=== PATIENT | female | born 1985 | race Caucasian/White ===

== ENCOUNTER 2018-10-09 19:18 | Emergency (ER) | payer MEDICAID, SELFPAY ==
[2018-10-09 19:22] VITALS: BP 183/112; PULSE 65; RESP 24; TEMP 37.1; O2SAT 96
--- NOTE | 2018-10-09 19:52 | ED.GENADUL_ITS ---
Discharge Plan Disposition Patient Disposition: HOME Condition: Good Discharge Details Chief Complaint: DentalOral Clinical Impression: Infected dental carries Primary Care Provider: None,None ED Provider: Claude Vegas Home Meds and New Rx's Prescriptions: New azithromycin 250 mg tablet 250 mg PO DAILY 5 Days Qty: 5 RF: 0 No Action methadone [Dolophine] 10 MG tablet 90 mg DAILY RF: 0 pentazocine-naloxone 1 EACH tablet 1 - 2 ea PO QID PRNQty: 20 RF: 0 Discharge Instructions Instructions: Dental Caries (ED) Additional Instructions: Please take 800 mg of ibuprofen every 6 hours and 1000 mg of Tylenol every 6 hours the antibiotic as tomorrow tomorrow. Please follow-up with your dentist as scheduled appointment. If you notice any worsening of your symptoms, or any new symptoms such as vomiting, diarrhea, fever, chills, shortness of breath, chest pain, numbness, weakness, or fainting , please return immediately to the emergency department for reevaluation. Please follow up with your primary care provider as soon as possible for reassessment and reevaluation. As always, it was a pleasure participating in your medical care today. Medical Decision Making This is a 33-year-old female who presents with dental pain from a mild left lower dental carry. No evidence of abscess, vital signs are reassuring, signs of fever, abscess, or other significant abnormalities. No concerning red flags for abscess. The patient did have a dental block performed, she tolerated this very well, she had complete resolution of her pain. She has a follow-up with her dentist later this week. We discussed red flags which to return and the patient understands, we will given antibiotic here, as well as an antibiotic for home use. I have extensively reviewed the treatment plan and discharge instructions with the patient. I have addressed all patient concerns at this time. The patient was made aware of what symptoms to monitor for that would warrant a return to the emergency department. Discussed the plan with the fox foss, they demonstrate verbal understanding and agreement with our assessment and plan at this time. Time out was taken to identify the correct patient, procedure, and site. Risks and benefits were discussed with the patient and consent was obtained. Direct pressure was held over the area prior to the procedure to reduce painful injection. 5 cc?s of Lidocaine 1% and Bupivacaine 0.25% was instilled into the left lower jaw with a 27 gauge needle.Complete analgesia was obtained. The patient tolerated the procedure. There were no complications. HPI General Date/Time Provider Initiated Documentation: 10/09/18 19:22 . HPI Narrative: This is a pleasant 33-year-old female with a past medical history of dental caries and methadone use who presents for left lower dental pain in her posterior molars. Pain is been present for the last few days, notably worsened in the last 12 hours. She denies any fever chills swelling or discharge. She does have an appointment with her dentist in 6 days. He has been taking Tylenol or Motrin with no significant improvement of his symptoms. She denies any other complaints or modifying factors at this time Related Data Home Medications Medication Instructions Recorded Confirmed methadone [Dolophine] 90 mg DAILY 03/15/13 10/09/18 pentazocine-naloxone 1 - 2 ea PO QID PRN #20 tab 01/12/15 azithromycin 250 mg PO DAILY 5 Days #5 tab 10/09/18 Previous Rx's Medication Instructions Recorded pentazocine-naloxone 1 - 2 ea PO QID PRN #20 tab 01/12/15 azithromycin 250 mg PO DAILY 5 Days #5 tab 10/09/18 Allergies Allergy/AdvReac Type Severity Reaction Status Date / Time amoxicillin [Amoxicillin] Allergy Intermediate Hives Unverified 10/09/18 19:26 General Stated Complaint: DentalOral KEVIN: 4 Review of Systems Review of Systems All systems reviewed & are unremarkable except as noted in HPI and below PFSH Social History Smoking/Tobacco Use Status: Current every day Tobacco Type: cigarettes Smoking cigarettes per day: 8 Alcohol Intake: never Drug use: Occasionally Details: takes methadone Do you feel safe at home: Yes Do you feel safe in your relationship?: Yes Exam Narrative Exam Narrative: 1.Const: Well-nourished, Well-developed, appearing stated age 2.Eyes: PERRL, no conjunctival injection, and symmetrical lids. 3.ENT: Atraumatic external nose and ears. Moist MM. Neck: Symmetric, trachea midline, No thyromegaly. Mild dental caries and posterior left lower molars. No evidence of abscess, no significant swelling or discharge. No signs of peritonsillar abscess. 4.CVS: +S1/S2, No murmurs or gallops. Peripheral pulses 2+ and equal in all extremities. Brisk capillary refill in all extremities. 5.RESP: Unlabored respiratory effort. Clear to auscultation bilaterally. No wheezes rales or rhonchi 6.GI: Soft, Nontender/Nondistended, No hepatosplenomegaly. No guarding or rebound. 7.MSK: Normocephalic/Atraumatic, Extremities w/o deformity or ttp No cyanosis or clubbing, Normal movement of all extremities 8.Skin: Warm, Dry. No rashes or lesions. 9.Neuro: animal rescuer II-XII grossly intact. Sensation grossly intact, no focal neurologic deficits. 10.Psych: (AAO) x3. Appropriate mood and affect Course Vital Signs Temperature 37.1 C 10/09/18 19:22 Pulse 65 10/09/18 19:22 Respiratory Rate 24 10/09/18 19:22 Blood Pressure 183/112 H 10/09/18 19:22 Pulse Oximetry 96 10/09/18 19:22 Temperature 37.1 C 10/09/18 19:22 Temperature Source Temporal Artery Scan 10/09/18 19:22 Pulse 65 10/09/18 19:22 Respiratory Rate 24 10/09/18 19:22 Respiratory Effort 10/09/18 19:22 Blood Pressure 183/112 H 10/09/18 19:22 Blood Pressure Position Sitting 10/09/18 19:22 Pulse Oximetry 96 10/09/18 19:22 Oxygen Delivery Method Room Air 10/09/18 19:22 Oxygen Flow Rate 0 10/09/18 19:22 Pain Level 10 10/09/18 19:28
[2018-10-09] MEDS: Azithromycin 250 MG TAB 500 MG PO (20:04)
[2018-10-09 20:14] VITALS: BP 142/75; PULSE 60; RESP 18; O2SAT 20
[2018-10-09] MEDS: Benzocaine 20% Gel 30 GM JAR MM (20:19)
[2018-10-09] MEDS: Bupivacaine 0.5% Pres-Free 30 ML VIAL (20:19)
== END 2018-10-09 20:10 | disposition home or self-care (01) ==
PROVIDERS: Emergency Provider Student in an Organized Health Care Education/Training Program
DX: K04.7 Periapical abscess without sinus (principal)
CPT/HCPCS: 99283

== ENCOUNTER 2020-02-26 09:32 | Emergency (ER) | payer MEDICAID, SELFPAY ==
[2020-02-26 09:38] VITALS: BP 128/73; PULSE 99; RESP 18; TEMP 36.9; O2SAT 94
--- NOTE | 2020-02-26 09:43 | ED.GENADUL_ITS ---
Discharge Plan Disposition Patient Disposition: HOME Condition: Stable Discharge Details Chief Complaint: Cellulitis Clinical Impression: Cellulitis Primary Care Provider: None,None ED Provider: Sky Natarajan Home Meds and New Rx's Prescriptions: New sulfamethoxazole-trimethoprim [Bactrim DS] 800-160 mg tablet 1 tab PO BID Qty: 20 RF: 0 Continued methadone [Dolophine] 10 MG tablet 110 mg DAILY RF: 0 Discharge Instructions Instructions: Cellulitis (ED) Additional Instructions: Stop using illicit drugs. Bactrim as directed. Rest, elevate, warm compresses every 2 hours for 20 minutes. Please watch for new or worsening symptoms and return to the ER for any concerns. Medical Decision Making 34-year-old female presents what appears to be cellulitis to her left lower e xtremity after injecting drugs 3 days ago. She is afebrile, appears well, nontoxic. Lungs are clear to auscultation, heart rate in the 90s, O2 sats in the mid 90s on room air. No calf pain, no history of DVT or PE. We discussed her drug use, she does not request any help at this time and reports that she is a work in progress. Not believe that laboratory values will change her disposition here in the ER today. No signs of pointing abscess, nothing for incision and drainage. Will provide antibiotic therapy. She declines crutches. First dose of Bactrim given here. We discussed signs and symptoms of abscess and the importance of returning to the ER for new or evolving symptoms. Oth erwise I stressed the importance of resting and elevating and taking her medications as directed. We also discussed not using illicit drugs. Medical Records Medical records reviewed: Yes I reviewed the patient's medical records. HPI General Mode of arrival: ambulatory . Date/Time Provider Initiated Documentation: 02/26/20 09:42 . Limitations to Documentation: no limitations . Information obtained by: patient . HPI Narrative: This is a 34-year-old female who reports history of drug use, currently takes methadone, presents for a left lower leg infection that has been worsening over the past 2 days. She reports that she injected crystal meth 3 days ago and believes that she missed. She denies any fever. She denies any chest pain or shortness of breath. Denies any pain in her calf. The pain is mild at rest, moderate with movement or bearing weight. It is along the medial aspect of her lower leg exactly where she injected, also admits to picking at her skin. Denies history of DVT or PE. No suspicion for foreign body. Denies any obvious swelling, drainage or abscess. Related Data Home Medications Medication Instructions Recorded Confirmed methadone [Dolophine] 110 mg DAILY 03/15/13 02/26/20 sulfamethoxazole-trimethoprim 1 tab PO BID #20 tab 02/26/20 [Bactrim DS] Previous Rx's Medication Instructions Recorded sulfamethoxazole-trimethoprim 1 tab PO BID #20 tab 02/26/20 [Bactrim DS] Allergies Allergy/AdvReac Type Severity Reaction Status Date / Time amoxicillin [Amoxicillin] Allergy Intermediate Hives Unverified 02/26/20 09:42 General Stated Complaint: Cellulitis KEVIN: 4 Review of Systems Constitutional Constitutional: Denies fever(s) and Denies weakness Cardiovascular Cardiovascular: Denies chest pain and Denies dyspnea Respiratory Respiratory: Denies cough and Denies dyspnea Gastrointestinal Gastrointestinal: Denies abdominal pain, Denies nausea and Denies vomiting Musculoskeletal Musculoskeletal: Denies arthralgias, Denies numbness and Denies tingling Integumentary/Breasts Skin/Breast: Reports erythema Neurologic Neurologic: Denies numbness, Denies tingling and Denies weakness [facility] Social History Smoking/Tobacco Use Status: Current every day Tobacco Type: cigarettes Alcohol Intake: current Alcohol Intake frequency: holidays/special occasions only Drug use: Occasionally Substance use type: crack/cocaine, heroin and club/digital designer drugs Details: takes methadone Do you feel safe at home: Yes Do you feel safe in your relationship?: Yes Exam Const General: cooperative, healthy appearing, comfortable and no acute distress Orientation: alert and awake [facility] Head: normal to inspection, normocephalic and atraumatic Mouth: moist mucous membranes Eyes Conjunctivae: conjunctivae normal Neck Neck: normal visual inspection, trachea midline and supple Resp Effort & Inspection: normal respiratory effort and able to speak in complete sentences Auscultation: clear to auscultation bilaterally Cardio Rate: regular rate Rhythm: regular rhythm Skin General skin exam: no rashes or lesions noted Neuro General: patient alert, patient awake, patient oriented x3, moves all extremities and no focal motor deficits Speech: speech normal Gait: normal gait Motor: muscle tone normal throughout and strength 5/5 throughout Sensory Exam: no sensory deficits noted Extrem Ankle/foot/toe images: 1. Erythema, warmth, tenderness to palpation. There is diffuse mild induration but no fluctuance or pointing abscess. No drainage. Negative Homans sign. There is no posterior discomfort whatsoever. Neuro, vascular, tendon intact. No obvious foreign body. Psych Appearance: grossly normal Mental Status: mental status grossly normal Course Vital Signs Vital signs: Vital Signs Temperature 36.9 C 02/26/20 09:38 Pulse 99 H 02/26/20 09:38 Respiratory Rate 18 02/26/20 09:38 Blood Pressure 128/73 02/26/20 09:38 Pulse Oximetry 94 L 02/26/20 09:38 Temperature 36.9 C 02/26/20 09:38 Temperature Source Tympanic 02/26/20 09:38 Pulse 99 H 02/26/20 09:38 Respiratory Rate 18 02/26/20 09:38 Blood Pressure 128/73 02/26/20 09:38 Blood Pressure Position Supine 02/26/20 09:38 Pulse Oximetry 94 L 02/26/20 09:38 Oxygen Delivery Method Room Air 02/26/20 09:38 Oxygen Flow Rate 0 02/26/20 09:38 Pain Level 5 02/26/20 09:38
[2020-02-26] MEDS: Sulfameth/Trimeth DS TAB 1 TAB PO (10:04)
== END 2020-02-26 10:08 | disposition home or self-care (01) ==
PROVIDERS: Emergency Provider Physician Assistant
DX: L03.116 Cellulitis of left lower limb (principal); F15.20 Other stimulant dependence, uncomplicated
CPT/HCPCS: 99283

== ENCOUNTER 2020-06-01 13:25 | Emergency (ER) | payer MEDICAID, SELFPAY ==
[2020-06-01 13:31] VITALS: BP 128/80; PULSE 108; RESP 18; TEMP 37.1; O2SAT 94
--- NOTE | 2020-06-01 13:37 | ED.GENADUL_ITS ---
Discharge Plan Disposition Patient Disposition: HOME Condition: Stable Discharge Details Clinical Impression: Folliculitis Primary Care Provider: Nieves Feliz ED Provider: Chris Torres Home Meds and New Rx's Prescriptions: New sulfamethoxazole-trimethoprim [Bactrim DS] 800-160 mg tablet 1 tab PO BID 10 Days Qty: 20 RF: 0 Continued methadone [Dolophine] 10 MG tablet 110 mg DAILY RF: 0 Discharge Instructions Instructions: Folliculitis (ED) Additional Instructions: Take antibiotics as prescribed. Return if you have increasing discomfort develop a pointing abscess, or any other acute concerns. Avoid shaving the area. Continue your regularly prescribed medications. Medical Decision Making 35-year-old female presents with 3 days of right proximal groin erythema after shaving with a old razor. She now has a folliculitis with surrounding cellulitis. I do not appreciate pointing abscess. She has some induration but no significant fluctuance to the area. Discussed with her that she has had good response to skin infections with Bactrim in the past. She will maintain surveillance of the area for developing pointing abscess and return if needed. Stable for discharge to home at this time. We will ask care management to arrange reestablishment of primary care for the patient. HPI General Mode of arrival: ambulatory . Date/Time Provider Initiated Documentation: 06/01/20 13:29 . Limitations to Documentation: no limitations . Information obtained by: patient . History of Present Illness 35 year old F presents to the emergency department with the chief complaint of Rash right thigh and groin x3 days, described as mild, Quality is described as dull, and is localized to the right and lower extremity. Patient reports no radiation. Patient started experiencing this day(s) and it has been constant. No relieving factors improve symptom(s), No exacerbating factors reported . Patient notes no other symptoms.. Patient did receive the following treatments prior to arrival, none Related Data Home Medications Medication Instructions Recorded Confirmed methadone [Dolophine] 110 mg DAILY 03/15/13 06/01/20 sulfamethoxazole-trimethoprim 1 tab PO BID 10 Days #20 tab 06/01/20 [Bactrim DS] Previous Rx's Medication Instructions Recorded sulfamethoxazole-trimethoprim 1 tab PO BID 10 Days #20 tab 06/01/20 [Bactrim DS] Allergies Allergy/AdvReac Type Severity Reaction Status Date / Time amoxicillin [Amoxicillin] Allergy Intermediate Hives Unverified 02/26/20 09:42 General Stated Complaint: Cellulitis KEVIN: 4 Review of Systems Narrative: No fever. Has otherwise been well. 6 systems reviewed and otherwise negative. [facility] Social History Smoking/Tobacco Use Status: Current every day Tobacco Type: cigarettes Smoking risk assessment performed?: Yes Alcohol Intake: current Alcohol Intake frequency: holidays/special occasions only Drug use: Binges Substance use type: crack/cocaine and heroin Details: has not been on methadone in 12 days, states she last used yesterday. Do you feel safe at home: Yes Do you feel safe in your relationship?: Yes Exam Narrative Exam Narrative: GEN: awake, alert, oriented 3. Pleasant, well groomed, interactive. HEAD: Normocephalic, atraumatic ENT: Mucous membranes moist, oropharynx unremarkable, External ear exam unremarkable EYES: PERRL, EOMI NECK: Full ROM, no RAMILA, no menigismus CHEST/RESP: Nontender EXT: Full ROM, right groin and medial proximal thigh with erythema, adenopathy, induration, no pointing fluctuance appreciated. Neuro: Grossly normal neurologic exam, conversant, interactive. Psych: Speech fluent, thoughts congruent, affect normal Course Vital Signs Vital signs: Vital Signs Temperature 37.1 C 06/01/20 13:31 Pulse 108 H 06/01/20 13:31 Respiratory Rate 18 06/01/20 13:31 Blood Pressure 128/80 06/01/20 13:31 Pulse Oximetry 94 06/01/20 13:31 Temperature 37.1 C 06/01/20 13:31 Temperature Source Skin 06/01/20 13:31 Pulse 108 H 06/01/20 13:31 Respiratory Rate 18 06/01/20 13:31 Respiratory Effort Non-Labored 06/01/20 13:35 Blood Pressure 128/80 06/01/20 13:31 Blood Pressure Position Supine 06/01/20 13:31 Pulse Oximetry 94 06/01/20 13:31 Oxygen Delivery Method Room Air 06/01/20 13:31 Oxygen Flow Rate 0 06/01/20 13:31
[2020-06-01] MEDS: Sulfameth/Trimeth DS TAB 1 TAB PO (13:55)
--- NOTE | 2020-06-01 14:18 | NUR.NOTE ---
Referral faxed to PCP [facility] Nieves Feliz.Nursing Note:
== END 2020-06-01 14:00 | disposition home or self-care (01) ==
PROVIDERS: Emergency Provider Emergency Medicine; PCP Nurse Practitioner
DX: L03.314 Cellulitis of groin (principal); L73.9 Follicular disorder, unspecified; R23.4 Changes in skin texture
CPT/HCPCS: 99283

== ENCOUNTER 2020-06-04 10:48 | Emergency (ER) | payer MEDICAID, SELFPAY ==
[2020-06-04 10:54] VITALS: BP 153/86; PULSE 111; RESP 16; TEMP 36.6; O2SAT 98
--- NOTE | 2020-06-04 11:28 | W.ED.GENAD ---
Discharge Plan Disposition Patient Disposition: HOME Condition: Good Discharge Details Clinical Impression: Abscess or cellulitis of thigh Primary Care Provider: Nieves Feliz ED Provider: Claude Vegas Home Meds and New Rx's Prescriptions: New clindamycin HCl 150 mg capsule 450 mg PO QID 7 Days Qty: 84 RF: 0 Continued methadone [Dolophine] 10 MG tablet 110 mg DAILY RF: 0 Discontinued sulfamethoxazole-trimethoprim [Bactrim DS] 800-160 mg tablet 1 tab PO BID 10 Days Qty: 20 RF: 0 Discharge Instructions Instructions: Cellulitis (ED) Additional Instructions: Your abscess has been drained. Please take the new antibiotic clindamycin as directed. Make sure to take this with a yogurt with live cultures like activity to prevent any diarrhea. Please stop taking your Bactrim. Please do your best to stop using IV drugs. You will be contacted by our recovery coaches. The packing that has been placed should come out on its own or can be removed in 7 days. Please follow-up back here in the emergency department for a recheck in the next 5 to 7 days to make sure your symptoms are improving. Do not soak the area, keep it covered when taking a shower. If you notice any worsening of your symptoms, or any new symptoms such as worsening drainage, spreading redness, vomiting, diarrhea, fever, chills, shortness of breath, chest pain, numbness, weakness, or fainting , please return immediately to the emergency department for reevaluation. Please follow up with your primary care provider as soon as possible for reassessment and reevaluation. As always, it was a pleasure participating in your medical care today. Referrals: Nieves Feliz [Primary Care Provider] - Discharge Data Discharge Date/Time-TO BE ENTERED AT DEPARTURE: 06/04/20 11:39 Medical Decision Making 35-year-old female with a past medical history of IV drug use who presents today for evaluation of cellulitis. Patient was seen and assessed [address] Torres, at that time she had mild cellulitis over her right thigh, she does have a history of injecting both distally and proximally with needles and IV drugs in this area. She states that she thought she was using a dirty razor and made it started out as folliculitis. She was started on Bactrim. Unfortunately she feels that the pain is getting worse. She presents today for reevaluation. She denies any fever or chills, she states that she is still using regularly, most recent time was earlier today. She has hepatitis C positive, and she denies any other complaints. She states that she has been taking the antibiotic as directed. Physical exam demonstrates unchanged cellulitis however she does have notable abscess, bedside ultrasound confirmed this. The area was anesthetized with lidocaine, 11 blade was then used to create a cruciate incision, over 25 mL of fluid was removed. Notable purulence. There was no dishwater fluid, no active or passive movement of the thigh. Patient does not demonstrate symptoms consistent with necrotizing fasciitis. She does however demonstrate clear evidence of cellulitis and notable abscess, likely secondary to her injecting in the areas of proximity with IV drugs. With no fever or chills, and with her vital signs stable, there is no indication for further lab or ID work-up. No indication for imaging at this time, no clinical crepitus or symptoms suggestive of subcutaneous gas. Symptoms at this time are clearly consistent with abscess and mild cellulitis without systemic component. Patient will be transitioned to clindamycin instead, recommended close follow-up and wound recheck. The area was packed with discussed the importance of return for reassessment or follow-up with her PCP. Additionally with her permission we have placed a referral to recovery coaches for discussions with her without changing her current lifestyle. I have extensively reviewed the treatment plan and discharge instructions with the patient. I have addressed all patient concerns at this time. The patient was made aware of what symptoms to monitor for that would warrant a return to the emergency department. Discussed the plan with the patient, they demonstrate verbal understanding and agreement with our assessment and plan at this time. HPI General Date/Time Provider Initiated Documentation: 06/04/20 10:51. HPI Narrative: 35-year-old female with a past medical history of IV drug use who presents today for evaluation of cellulitis. Patient was seen and assessed [address] Torres, at that time she had mild cellulitis over her right thigh, she does have a history of injecting both distally and proximally with needles and IV drugs in this area. She states that she thought she was using a dirty razor and made it started out as folliculitis. She was started on Bactrim. Unfortunately she feels that the pain is getting worse. She presents today for reevaluation. She denies any fever or chills, she states that she is still using regularly, most recent time was earlier today. She has hepatitis C positive, and she denies any other complaints. She states that she has been taking the antibiotic as directed. Related Data Home Medications Medication Instructions Recorded Confirmed methadone [Dolophine] 110 mg DAILY 03/15/13 06/04/20 clindamycin HCl 450 mg PO QID 7 Days #84 cap 06/04/20 Previous Rx's Medication Instructions Recorded clindamycin HCl 450 mg PO QID 7 Days #84 cap 06/04/20 Allergies Allergy/AdvReac Type Severity Reaction Status Date / Time amoxicillin [Amoxicillin] Allergy Intermediate Hives Unverified 06/04/20 10:59 General Stated Complaint: Cellulitis KEVIN: 3 Review of Systems All systems reviewed & are unremarkable except as noted in HPI and below PFSH Social History Smoking/Tobacco Use Status: Current every day Tobacco Type: cigarettes Smoking risk assessment performed?: Yes Alcohol Intake: current Alcohol Intake frequency: holidays/special occasions only Drug use: Binges Substance use type: crack/cocaine and heroin Details: has not been on methadone in 12 days, states she last used yesterday. Do you feel safe at home: Yes Do you feel safe in your relationship?: Yes Exam Narrative Exam Narrative: 1.Const: Well-nourished, Well-developed, appearing stated age 2.Eyes: PERRL, no conjunctival injection, and symmetrical lids. 3.ENT: Atraumatic external nose and ears. Moist MM. Neck: Symmetric, trachea midline, No thyromegaly. 4.CVS: +S1/S2, No murmurs or gallops. Peripheral pulses 2+ and equal in all extremities. Brisk capillary refill in all extremities. 5.RESP: Unlabored respiratory effort. Clear to auscultation bilaterally. No wheezes rales or rhonchi 6.GI: Soft, Nontender/Nondistended, No hepatosplenomegaly. No guarding or rebound. 7.MSK: Normocephalic/Atraumatic, Extremities w/o deformity or ttp No cyanosis or clubbing, Normal movement of all extremities 8.Skin: Patient's right proximal thigh demonstrates mild redness that does not appear to have significantly extended around the previously marked location done by Dr. Torres. Total diameter of this area is roughly 68 inches. However what does appear to be new is a large firm fluctuant region slightly more proximally with a diameter of roughly 5 inches. Bedside ultrasound shows notable cobblestoning and free fluid. Area is notably tender. There is no actual head or perceptible purulence externally. No significant pain with active or passive movement of the muscles of the thigh or hip. 9.Neuro: lockstitch sleeve maker II-XII grossly intact. Sensation grossly intact, no focal neurologic deficits. 10.Psych: (AAO) x3. Appropriate mood and affect Course Vital Signs Vital signs: Vital Signs Temperature 36.6 C 06/04/20 10:54 Pulse 111 H 06/04/20 10:54 Respiratory Rate 16 06/04/20 10:54 Blood Pressure 153/86 H 06/04/20 10:54 Pulse Oximetry 98 06/04/20 10:54 Temperature 36.6 C 06/04/20 10:54 Temperature Source Skin 06/04/20 10:54 Pulse 111 H 06/04/20 10:54 Respiratory Rate 16 06/04/20 10:54 Respiratory Effort Non-Labored 06/04/20 10:54 Blood Pressure 153/86 H 06/04/20 10:54 Blood Pressure Position Sitting 06/04/20 10:54 Pulse Oximetry 98 06/04/20 10:54 Oxygen Delivery Method Room Air 06/04/20 10:54 Oxygen Flow Rate 0 06/04/20 10:54 Pain Level 7 06/04/20 10:54 Procedures Abscess I/D Site: Lower Extremity (Right proximal thigh) Side (if applicable): Right Local Anesthetic: Lidocaine 1% Amount of anesthesia used (mL): 10 Technique: Incised with #11 Blade Amount of fluid expressed (mL): 30 Irrigation: Yes Packing used?: Plain
--- NOTE | 2020-06-04 11:30 | NUR.NOTE ---
Nursing Note: Referral to [facility] Resource Recovery Specialist given to Care Management for follow up. Bonnie Rankin
[2020-06-04 11:44] VITALS: BP 140/94; PULSE 98; RESP 20; TEMP 37.1; O2SAT 96
--- NOTE | 2020-06-05 08:00 | W.ED.FU ---
Date of service: 06/05/20 Time of Service: 08:00 Follow Up Plan: Did contact patient this morning for follow-up to make sure she was doing well, no answer at phone number, voicemail left.
--- NOTE | 2020-06-07 09:56 | PDOC.ERCMPRO ---
- If Service Date Differs Date of service: 06/07/20 Time of Service: 09:56 Care Management Progress Note Evelyn is seen in the ED on 06/04/20 for cellulitis. At the request of ED provider, Dr. Ascencion CM coordinates a referral to [facility] for support and resources.
== END 2020-06-04 11:39 | disposition home or self-care (01) ==
PROVIDERS: Emergency Provider Student in an Organized Health Care Education/Training Program; PCP Nurse Practitioner
DX: L02.415 Cutaneous abscess of right lower limb (principal); L03.115 Cellulitis of right lower limb; F11.10 Opioid abuse, uncomplicated
CPT/HCPCS: 10061

== ENCOUNTER 2020-08-19 12:40 | Emergency (ER) | payer MEDICAID, SELFPAY ==
[2020-08-19 12:45] VITALS: BP 103/78; PULSE 84; RESP 20; TEMP 36.3; O2SAT 98
--- NOTE | 2020-08-19 12:51 | ED.GENADUL_ITS ---
Discharge Plan Disposition Patient Disposition: HOME Condition: Stable Discharge Details Clinical Impression: Abscess Primary Care Provider: Gabriela,Local ED Provider: Cass Romo Home Meds and New Rx's Prescriptions: New clindamycin HCl 300 mg capsule 300 mg PO TID 7 Days Qty: 21 RF: 0 Continued methadone [Dolophine] 10 MG tablet 70 mg DAILY RF: 0 Discharge Instructions Instructions: Abscess (ED) Additional Instructions: Please reconsider speaking with assistant men's lacrosse coach. We can refer you to them or help you connect at any point. Please continue with your [facility] program and discuss recurrence of IV drug use with them further. Please keep the left thigh abscess covered and performed a wet to dry dressing as was discussed by nursing staff. Monitor for signs of infection including redness, increased pain, increased discharge. If you develop the symptoms once again please return. This should be evaluated by wound care. A referral has been sent. Regards to the abscess on your ankle, this was opened today. Please keep covered with a dry sterile dressing. You may take this off to shower and cleanse the area daily. Please take the clindamycin as prescribed. Even if symptoms improve, please take the entire course. Please try to elevate and rest your leg is much as possible. If he develop fever/chills, spreading of the redness or other new/worsening symptoms please seek care urgently once again. Otherwise, please follow-up with your primary care next week for reevaluatoin. Care management will refer help you to set up primary care follow up. Discharge Data Discharge Date/Time-TO BE ENTERED AT DEPARTURE: 08/19/20 14:48 Medical Decision Making Patient is a 35-year-old female presenting to complaint of an abscess on both her right and left lower extremities. Patient has had multiple abscesses historically. She reports that this is from IV drug use. Unclear what she is been injecting, she states that she has been injecting what ever. She states that the one on the lateral aspect of the left thigh began several days ago but that it did open spontaneously. She reports that after it opened the pain immediately improved. States the pain from this is quite minimal at this time. She denies any fevers or chills. Has been covering this with electrical tape. She also has an abscess the medial aspect of the right ankle. This 1 is quite tender for her. This too is willing to to injection site. On exam, patient appears chronically ill but does not appear acutely toxic. Vital signs are stable. She is a quarter sized open area into the subcutaneous tissue exposing fatty tissue on the left lateral thigh consistent with the opening of the recent abscess. I did ultrasound this area and did not see any residual pockets of retained fluid. She does have an indurated area around this but no erythema or warmth. Does not appear to have any concomitant cellulitis. Patient also has a quarter size abscess on the medial aspect of the right ankle near the joint line, just anterior to the medial malleolus. Surrounding this is an erythematous and warm area. Tender to palpation. I am concerned about cellulitis surrounding this area. Explored this area with US, collection of fluid consistent iwth abscess was identified. Primarily concerned about the area of the abscess on the right ankle and its proximity to the joint, will consult with orthopedics. Consulted with Dr. Meléndez. We discussed the findings on exam and proximity to the joint space. Dr. Meléndez advised it would be very unlike that her infection tracts into the joint. We feel it is safe to move forward with I&D and plan to contac thim should any joint fluid emerge. Will encourage close f/u for th epatient. Patient and I discussed risks/benefits as well as post I&D healing at length. All of her questions were discussed. She would like ot move forward with I&D. Please see procedure note. Patient tolerated this well. Thick, purulent discharge was expressed. Loculations broken up. Irrigation preformed. Patient and I discussed packing. Location would make this very difficult to stay in. With [facility] patients soscial stressors, she a poor candidate for wound healing. Care management has been involved from early in the department. She has used 211 before. They will be contacting her to [facility] housing options. Care managment evaluated the patient. Aruna does not want assistant men's lacrosse coach. I advised she may call at any time should she change her mind. encouraged close f/u. Return precautions discussed. All of her questions and concerns were addressed, she is in agreement with this plan. First dose of abx given. She responded well to clinda historically, will use this again. HPI General Mode of arrival: ambulatory . Date/Time Provider Initiated Documentation: 08/19/20 12:41 . Limitations to Documentation: no limitations . Information obtained by: patient, RN notes reviewed and old records reviewed . History of Present Illness 35 year old F presents to the emergency department with the chief complaint of abscess to left thigh and right ankle, described as mild, Quality is described as aching, and is localized to the left, right and upper extremity. Patient reports no radiation. Patient started experiencing this day(s) and it has been constant. No relieving factors improve symptom(s), Movement worsens symptoms (abscess on ankle) . Patient notes no other symptoms.. Patient did receive the following treatments prior to arrival, none Related Data Home Medications Medication Instructions Recorded Confirmed methadone [Dolophine] 70 mg DAILY 03/15/13 08/19/20 clindamycin HCl 300 mg PO TID 7 Days #21 cap 08/19/20 Previous Rx's Medication Instructions Recorded clindamycin HCl 300 mg PO TID 7 Days #21 cap 08/19/20 Allergies Allergy/AdvReac Type Severity Reaction Status Date / Time amoxicillin [Amoxicillin] Allergy Intermediate Hives Unverified 08/19/20 12:51 General Stated Complaint: Cellulitis KEVIN: 4 Review of Systems Constitutional Constitutional: Reports as per HPI, Denies chills and Denies fever(s) Musculoskeletal Musculoskeletal: Reports as per HPI Integumentary/Breasts Skin/Breast: Reports as per HPI Neurologic Neurologic: Reports as per HPI, Denies sensory deficit and Denies paresthesias REPLACED BY [facility] Social History Smoking/Tobacco Use Status: Current every day Tobacco Type: cigarettes Smoking risk assessment performed?: Yes Alcohol Intake: current Alcohol Intake frequency: holidays/special occasions only Drug use: Binges Substance use type: crack/cocaine and heroin Do you feel safe at home: Yes Do you feel safe in your relationship?: Yes Exam Const General: cooperative, healthy appearing, comfortable, no acute distress, well developed and disheveled Nutritional Appearance: average body habitus and well nourished Orientation: alert and awake Resp Effort & Inspection: normal respiratory effort, able to speak in complete sentences and no respiratory distress Cardio Rate: regular rate Rhythm: regular rhythm Skin General skin exam: erythema (right medial ankle) Wounds: wounds noted (left lateral thigh with quarter size open area into subQ) Neuro General: patient alert and patient awake Cognition: normal cognition Speech: speech normal Gait: normal gait Sensory Exam: no sensory deficits noted Extrem Knee images: 1. Area of opening consistent with hx of open abscess. Into subcutaneous tissue. No active bleeding. Surrounding tissue is indurated but non tender with no fluctuance. No fluid identified with US of this area. No surrounding erythema, warmth or drainage. Ankle/foot/toe images: 1. area of erythema and warmth. Patient has a palpable abscess, confirmed with US. surrounding erythema, warmth and tenderness consistent with abscess. 2+ distal pulses. Full ROM of ankle with no pain with passive ROM. Does not appear consistent with acutely infected joint. Most fluctuant area over anterior aspect of the medial malleolus super to the joint line Psych Appearance: grossly normal and well kempt Mental Status: mental status grossly normal Speech and Movement: speech and movement normal Course Vital Signs Vital signs: Vital Signs Temperature 36.3 C L 08/19/20 12:45 Pulse 84 08/19/20 12:45 Respiratory Rate 20 08/19/20 12:45 Blood Pressure 103/78 08/19/20 12:45 Pulse Oximetry 98 08/19/20 12:45 Temperature 36.3 C L 08/19/20 12:45 Temperature Source Skin 08/19/20 12:45 Pulse 84 08/19/20 12:45 Respiratory Rate 20 08/19/20 12:45 Blood Pressure 103/78 08/19/20 12:45 Blood Pressure Position Sitting 08/19/20 12:45 Pulse Oximetry 98 08/19/20 12:45 Oxygen Delivery Method Room Air 08/19/20 12:45 Oxygen Flow Rate 0 08/19/20 12:45 Pain Level 0 08/19/20 12:45 Procedures Abscess I/D Site: Lower Extremity Side (if applicable): Right Sedation/analgesia: None Local Anesthetic: Lidocaine 1% and With Epi Amount of anesthesia used (mL): 5 Technique: Incised with #11 Blade Amount of fluid expressed (mL): 3 Irrigation: Yes Packing used?: None Complications: Other (none)
[2020-08-19] MEDS: Clindamycin 300 MG CAP PO (14:57)
--- NOTE | 2020-08-19 17:49 | PDOC.ERCMPRO ---
- If Service Date Differs Date of service: 08/19/20 Time of Service: 17:49 Care Management Progress Note Evelyn is seen in the ED for cellulitis. At the request of JOANNA Braun, DEYSI meets with Evelyn to discuss her living arrangements. She states she has been staying here and there but does not have a permanent residence. When DEYSI inquires if she has contacted [employer] to obtain a motel voucher, Evelyn states she had a voucher but has been kicked out of a couple of motels, so she is unsure if they will help her. With her verbal authorization, DEYSI contacts [employer] and speaks with Ermias who advises they need to speak with Evelyn directly. DEYSI provides Ermias with her contact information and Evelyn is told to expect a call from [employer] regarding housing options.
--- NOTE | 2020-08-19 23:45 | NUR.NOTE ---
referral sent to gen/ surgpaolo/cm for next week for wound care Moris EDNursing Note:
== END 2020-08-19 14:48 | disposition home or self-care (01) ==
PROVIDERS: Emergency Provider Physician Assistant
DX: L02.416 Cutaneous abscess of left lower limb (principal); L02.415 Cutaneous abscess of right lower limb; F11.10 Opioid abuse, uncomplicated
CPT/HCPCS: 10060; 81025; 87077; 99283; 87070; 87186; 87205; 99281

== ENCOUNTER 2020-12-22 21:45 | Emergency (ER) | payer MEDICAID, SELFPAY ==
--- NOTE | 2020-12-22 21:46 | ED.GENADUL_ITS ---
Discharge Plan Disposition Patient Disposition: HOME Condition: Stable Discharge Details Clinical Impression: Cellulitis and abscess of right leg Primary Care Provider: Gabriela,Local ED Provider: Kadi Case Home Meds and New Rx's Prescriptions: New clindamycin HCl 150 mg capsule 450 mg PO TID 7 Days Qty: 63 RF: 0 Continued methadone [Dolophine] 10 MG tablet 70 mg DAILY RF: 0 Discharge Instructions Instructions: Cellulitis (ED), Abscess (ED) Additional Instructions: Keep wound clean dry and covered. There is packing gauze inside the wound that needs to stay in place. If the outer dressing falls off, replace it to prevent the packing gauze from falling out. Your antibiotic prescription has been sent electronically to your pharmacy. Call the pharmacy to make sure your prescription is ready before pickup. Take the prescription as directed. Alternate tylenol and motrin as needed and directed for pain. Return to the emergency department in 2 days for wound check and packing removal. Return to the emergency department anytime if you develop any worsening or new concerning symptoms such as fever, worsening redness, pain or swelling. Discharge Data Discharge Date/Time-TO BE ENTERED AT DEPARTURE: 12/22/20 22:24 Discharge Physician: Kadi Case Medical Decision Making 35yo F with a history of IV drug abuse who presents to the ED for an abscess to her right thigh for the past week. She has an approximate 10 x 8 cm area of erythema to the right medial thigh. There is a 2 x 2 centimeter area of fluctuant abscess in the center with a 3 x 3 mm hematoma in center. Patient refused any lab work or imaging. Discussed with patient the possibility of needing admission at some point, and she states she will not stay in the hospital. She is only agreeable to I&D at this time. She appears nontoxic but tearful and crying. 10 cc of lidocaine without epinephrine injected within center of fluctuance. Approximate ~ 50 cc of purulent bloody discharge expressed from abscess. Area irrigated with 100 cc of normal saline as pt could not tolerate any additional irrigation and packed with quarter inch iodoform gauze. Area dressed with 4 x 4 and Kerlix. Pt states she is not sexually active and denies and refuses test. Discussed the risks and contraindictions of giving clindamycin during and she is aware and still declining to give test. Pt given clindamycin here and bottle to go. Prescription for clindamycin sent electronically to her pharmacy. Advised to return to the ED in 2 days for wound check and packing removal. Medical Records Medical records reviewed: Yes I reviewed the patient's medical records. HPI General Mode of arrival: ambulatory . Date/Time Provider Initiated Documentation: 12/22/20 21:46 . Limitations to Documentation: no limitations . Information obtained by: patient . HPI Narrative: Pt is a 35yo F w/ a h/o IV drug abuse presents for abscess to her right inner thigh after shaving 1 week ago. She states the area is red, swollen and hot and is getting larger. She states she thought initially it was getting better and then it became worse. She denies any known fever. She states she does inject IV drugs in her right thigh but states this is in a different area from the site of her abscess. Rela agusto Data Home Medications Medication Instructions Recorded Confirmed methadone [Dolophine] 70 mg DAILY 03/15/13 08/19/20 clindamycin HCl 450 mg PO TID 7 Days #63 cap 12/22/20 Previous Rx's Medication Instructions Recorded clindamycin HCl 450 mg PO TID 7 Days #63 cap 12/22/20 Allergies Allergy/AdvReac Type Severity Reaction Status Date / Time amoxicillin [Amoxicillin] Allergy Intermediate Hives Unverified 08/19/20 12:51 General KEVIN: 4 Review of Systems All systems reviewed & are unremarkable except as noted in HPI and below Constitutional Constitutional: Reports as per HPI, Denies chills and Denies fever(s) Eyes Eyes: Denies blurry vision ENT Ears, Nose, Mouth, and Throat: Denies dizziness, Denies sore throat and Denies throat swelling Cardiovascular Cardiovascular: Denies chest pain and Denies dyspnea Respiratory Respiratory: Denies cough and Denies dyspnea Gastrointestinal Gastrointestinal: Denies abdominal pain, Denies diarrhea and Denies vomiting Genitourinary Genitourinary: Denies hematuria and Denies dysuria Musculoskeletal Musculoskeletal: Denies back pain and Denies numbness Integumentary/Breasts Skin/Breast: Reports lesions and Denies rash Neurologic Neurologic: Denies dizziness, Denies localized weakness and Denies numbness Allergic/Immunologic Allergic/Immunologic: Denies throat swelling [facility] Medical History (Updated 12/22/20 @ 22:36 by Kadi Case DO) Anxiety Bipolar affective disorder Narcotic abuse Social History Smoking/Tobacco Use Status: Current every day Tobacco Type: cigarettes Smoking risk assessment performed?: Yes Alcohol Intake: current Alcohol Intake frequency: holidays/special occasions only Drug use: Binges Substance use type: crack/cocaine and heroin Do you feel safe at home: Yes Do you feel safe in your relationship?: Yes Exam Const General: cooperative and no acute distress HENMT Head: normal to inspection Mouth: oral mucosae normal Eyes General: appearance normal, both eyes and all related structures Neck Neck: normal visual inspection Resp Effort & Inspection: normal respiratory effort and able to speak in complete sentences Cardio Rate: regular rate Skin General skin exam: no rashes or lesions noted Neuro General: patient alert, patient awake and patient oriented x3 Motor: muscle tone normal throughout Extrem Knee images: 1. Erythema and induration to right medial thigh extending from proximal to distal aspect. 2. 2 x 2 centimeter area of fluctuance with 3 x 3 mm hematoma in center. Other: Distal pulses intact. Psych Appearance: grossly normal Affect: normal affect Procedures Abscess I/D Site: Lower Extremity Side (if applicable): Right Local Anesthetic: Lidocaine 1% Amount of anesthesia used (mL): 10 Technique: Incised with #11 Blade Amount of fluid expressed (mL): 50 Irrigation: Yes Packing used?: Iodoform Complications: Pain
[2020-12-22 21:50] VITALS: BP 93/70; PULSE 90; RESP 18; TEMP 36.8; O2SAT 96
[2020-12-22] MEDS: Clindamycin 150 MG CAP, 12 CAPS/BTL 450 MG PO (22:45)
[2020-12-22] MEDS: Clindamycin 150 MG CAP 450 MG PO (22:45)
== END 2020-12-22 22:24 | disposition home or self-care (01) ==
PROVIDERS: Emergency Provider Physician Assistant
DX: L02.415 Cutaneous abscess of right lower limb (principal); L03.115 Cellulitis of right lower limb
CPT/HCPCS: 10061

== ENCOUNTER → 2022-03-21 09:04 | Emergency (ER) | payer MEDICAID, SELFPAY ==
--- NOTE | 2022-03-21 09:05 | NUR.NOTE ---
came in by ambulance, did not even get into a room before she said she needed to leave to go to the methadone clinic. exited out the ambulance bay door.
--- NOTE | 2022-03-21 09:07 | NUR.NOTE ---
Patient eloped to go to [facility] upon arrival with [facility].Nursing Note:
== END ==
LOC: ER 11:35
PROVIDERS: Emergency Provider Student in an Organized Health Care Education/Training Program
DX: Z53.21 Procedure and treatment not carried out due to patient leaving prior to being seen by health care provider (principal)

== ENCOUNTER 2022-05-14 21:06 | Emergency (ER) | payer MEDICAID, SELFPAY ==
[2022-05-14 21:13] VITALS: BP 138/56; PULSE 98; RESP 16; TEMP 36.6; O2SAT 98
--- NOTE | 2022-05-14 21:39 | ED.GENADUL_ITS ---
Discharge Plan Disposition Patient Disposition: HOME Condition: Improving Discharge Details Clinical Impression: Cellulitis Primary Care Provider: Gabriela,Local ED Provider: Chris Torres Home Meds and New Rx's Prescriptions: New clindamycin HCl 300 mg capsule 300 mg PO Q6H 10 Days Qty: 40 0RF No Action methadone [Dolophine] 10 MG tablet 70 mg DAILY Label Comments: off 3 mths Discharge Instructions Instructions: Cellulitis (ED) Additional Instructions: Continue warm soaks and Epson soaks. Take antibiotics as prescribed until finished. Return to the ER for any acute Medical Decision Making 36-year-old female presents with areas of developing cellulitis where she admits to using IV drugs and causes subcutaneous injection. There is no areas of consolidated abscess that is amenable to drainage. Discussed with her continuing warm soaks at home, Epson soaks, and a course of antibiotics. She understands indications to return to the ER for reevaluation. HPI General Mode of arrival: ambulatory . Date/Time Provider Initiated Documentation: 05/14/22 21:07 . Limitations to Documentation: no limitations . Information obtained by: patient . History of Present Illness 36 year old F presents to the emergency department with the chief complaint of Skin infection after using drugs, described as mild, and is localized to the left, right, upper extremity and lower extremity. Patient reports no radiation. Patient started experiencing this day(s) and it has been constant. No relieving factors improve symptom(s), No exacerbating factors reported . Patient notes denies fever/chills. Patient did receive the following treatments prior to arrival, none Related Data Home Medications Medication Instructions Recorded Confirmed methadone 10 mg tablet (Dolophine) 70 mg DAILY 03/15/13 01/29/22 clindamycin HCl 300 mg capsule 300 mg PO Q6H 10 days #40 caps 05/14/22 Previous Rx's Medication Instructions Recorded clindamycin HCl 300 mg capsule 300 mg PO Q6H 10 days #40 caps 05/14/22 Allergies Allergy/AdvReac Type Severity Reaction Status Date / Time amoxicillin [Amoxicillin] Allergy Intermediate Hives Unverified 05/14/22 21:18 Penicillins Allergy Verified 05/14/22 21:18 General Stated Complaint: RashLesion KEVIN: 4 Review of Systems Narrative: No fever, chills, vomiting. 6 systems were PFSH All Active Problems (Updated 05/14/22 @ 21:43 by Chris Torres MD) Cellulitis (Acute) Cellulitis and abscess of right leg (Acute) Medical History Anxiety Bipolar affective disorder Narcotic abuse Social History Smoking/Tobacco Use Status: Current every day Tobacco Type: cigarettes Smoking risk assessment performed?: Yes Alcohol Intake: current Alcohol Intake frequency: holidays/special occasions only Drug use: Binges Substance use type: crack/cocaine and heroin Do you feel safe at home: Yes Do you feel safe in your relationship?: Yes Exam Narrative Exam Narrative: GEN: awake, alert, oriented 3. Pleasant, well groomed, interactive. HEAD: Normocephalic, atraumatic ENT: Mucous membranes moist, oropharynx unremarkable, External ear exam unremarkable EYES: PERRL, EOMI NECK: Full ROM, no RAMILA, no menigismus CHEST/RESP: Nontender, clear to auscultation bilateral, no wheeze/rhonchi/rales CARDIOVASCULAR: RRR, no murmur, rub zeny. 2+ Rad pulse bilateral ABDOMEN: Soft, nontender, no mass. +Bowel sounds EXT: Full ROM, multiple areas of needle orona, areas of cellulitis. No area of large consolidative abscess Neuro: Grossly normal neurologic exam, conversant, interactive. Psych: Speech fluent, thoughts congruent, affect normal Course Vital Signs Vital signs: Vital Signs Temperature 36.6 C 05/14/22 21:13 Pulse 98 H 05/14/22 21:13 Respiratory Rate 16 05/14/22 21:13 Blood Pressure 138/56 L 05/14/22 21:13 Pulse Oximetry 98 05/14/22 21:13 Temperature 36.6 C 05/14/22 21:13 Temperature Source Oral 05/14/22 21:13 Pulse 98 H 05/14/22 21:13 Respiratory Rate 16 05/14/22 21:13 Respiratory Effort 05/14/22 21:13 Blood Pressure 138/56 L 05/14/22 21:13 Blood Pressure Position Sitting 05/14/22 21:13 Pulse Oximetry 98 05/14/22 21:13 Oxygen Delivery Method Room Air 05/14/22 21:13 Oxygen Flow Rate 0 05/14/22 21:13 Pain Level 1 05/14/22 21:13
[2022-05-14] MEDS: Clindamycin 150 MG CAP, 12 CAPS/BTL 450 MG PO (21:55)
== END 2022-05-14 22:14 | disposition home or self-care (01) ==
PROVIDERS: Emergency Provider Emergency Medicine
DX: L03.115 Cellulitis of right lower limb (principal)
CPT/HCPCS: 99283

== ENCOUNTER 2022-05-19 17:54 | Emergency (ER) | payer MEDICAID, SELFPAY ==
[2022-05-19 18:01] VITALS: BP 139/95; PULSE 96; RESP 17; TEMP 37; O2SAT 99
--- NOTE | 2022-05-19 19:35 | ED.GENADUL_ITS ---
Discharge Plan Disposition Patient Disposition: LEFT WITHOUT BEING SEEN Discharge Details Primary Care Provider: Unknown,Unknown ED Provider: Provider,Temporary Medical Decision Making Zofran 4 mg ODT ordered in the waiting room, patient left without being seen prior to my evaluation. HPI General Date/Time Provider Initiated Documentation: 05/19/22 18:14 . Related Data Home Medications Medication Instructions Recorded Confirmed methadone 10 mg tablet (Dolophine) 70 mg DAILY 03/15/13 05/19/22 Allergies Allergy/AdvReac Type Severity Reaction Status Date / Time amoxicillin [Amoxicillin] Allergy Intermediate Hives Unverified 05/19/22 18:05 Penicillins Allergy Verified 05/19/22 18:05 General Stated Complaint: RashLesion KEVIN: 4 PFSH All Active Problems (Updated 05/14/22 @ 21:43 by Chris Torres MD) Cellulitis (Acute) Cellulitis and abscess of right leg (Acute) Medical History Anxiety Bipolar affective disorder Narcotic abuse Social History Smoking/Tobacco Use Status: Current every day Tobacco Type: cigarettes Smoking risk assessment performed?: Yes Alcohol Intake: current Alcohol Intake frequency: holidays/special occasions only Drug use: Binges Substance use type: crack/cocaine and heroin Do you feel safe at home: Yes Do you feel safe in your relationship?: Yes Course Vital Signs Vital signs: Vital Signs Temperature 37.0 C 05/19/22 18:01 Pulse 96 H 05/19/22 18:01 Respiratory Rate 17 05/19/22 18:01 Blood Pressure 139/95 H 05/19/22 18:01 Pulse Oximetry 99 05/19/22 18:01 Temperature 37.0 C 05/19/22 18:01 Temperature Source Temporal Artery Scan 05/19/22 18:01 Pulse 96 H 05/19/22 18:01 Respiratory Rate 17 05/19/22 18:01 Respiratory Effort Non-Labored 05/19/22 18:13 Blood Pressure 139/95 H 05/19/22 18:01 Blood Pressure Position Sitting 05/19/22 18:01 Pulse Oximetry 99 05/19/22 18:01 Oxygen Delivery Method Room Air 05/19/22 18:01 Oxygen Flow Rate 0 05/19/22 18:01 Pain Level 4 05/19/22 18:01
== END 2022-05-19 19:26 | disposition left before discharge ==
DX: Z53.21 Procedure and treatment not carried out due to patient leaving prior to being seen by health care provider (principal)

== ENCOUNTER 2022-05-19 20:45 | Emergency (ER) | payer MEDICAID, SELFPAY ==
[2022-05-19 20:51] VITALS: BP 154/97; PULSE 86; RESP 16; TEMP 36.8; O2SAT 97
--- NOTE | 2022-05-19 20:56 | W.ED.GENAD ---
Discharge Plan Disposition Patient Disposition: HOME Condition: Stable Discharge Details Clinical Impression: Cellulitis, Prescription lost Primary Care Provider: Unknown,Unknown ED Provider: Irina Knox Home Meds and New Rx's Prescriptions: New clindamycin HCl [Cleocin HCl] 300 mg capsule 300 mg PO TID 7 Days Qty: 21 0RF Rx Instructions: Take one capsule three times daily x 7 days Discharge Instructions Instructions: Cellulitis (ED) Additional Instructions: You were given a new prescription for clindamycin. Please take 1 tablet 3 times a day for the next 7 days. Please take it as directed. Take it with yogurt or probiotic. Follow up with primary care provider in 3-5 days. Return to ED sooner if any worsening or concerns. Increase oral fluids. Please take Tylenol or Ibuprofen with food every 4-6 hours as needed for pain and swelling. This is the correct and appropriate antibiotic for your infections. Medical Decision Making Patient is a 36-year-old female who presents for medication refill. She reports that she lost her paper prescription from her visit approximately 5 days ago. She was given a bottle of 12 clindamycin which she has been taking. Last taken today. She is requesting additional prescription which was written for her. She reports the infection is no better no worse. This text was generated using [employer] dictation system, please disregard any oddities of phrase or misspellings. Medical Records Medical records reviewed: Yes I reviewed the patient's medical records. HPI General Mode of arrival: ambulatory. Date/Time Provider Initiated Documentation: 05/19/22 20:49. Limitations to Documentation: no limitations. Information obtained by: patient, RN notes reviewed and old records reviewed. HPI Narrative: 36-year-old female presents to the ER for a prescription refill. She was seen here 5 days ago for cellulitis and lesions to her legs and a tooth infection and was prescribed clindamycin. She reports that she was taking the clindamycin bottle to go she last reports taking 1 today. She states that she lost the paper prescription. She reports that the infection has gotten no worse and no better. States she has not been taking it as prescribed. She does however say that if we give her another paper prescription she can get it filled. Related Data Home Medications Medication Instructions Recorded Confirmed clindamycin HCl 300 mg capsule 300 mg PO TID 7 days #21 caps 05/19/22 (Cleocin HCl) Previous Rx's Medication Instructions Recorded clindamycin HCl 300 mg capsule 300 mg PO TID 7 days #21 caps 05/19/22 (Cleocin HCl) Allergies Allergy/AdvReac Type Severity Reaction Status Date / Time amoxicillin [Amoxicillin] Allergy Intermediate Hives Unverified 05/19/22 20:57 Penicillins Allergy Verified 05/19/22 20:57 General KEVIN: 4 Review of Systems All systems reviewed & are unremarkable except as noted in HPI and below ENT Ears, Nose, Mouth, and Throat: Reports dental pain Integumentary/Breasts Skin/Breast: Reports erythema PFSH All Active Problems (Updated 05/19/22 @ 21:00 by Irina Knox NP) Cellulitis (Acute) Prescription lost (Acute) Cellulitis and abscess of right leg (Acute) Medical History Anxiety Bipolar affective disorder Narcotic abuse Social History Smoking/Tobacco Use Status: Current every day Tobacco Type: cigarettes Smoking risk assessment performed?: Yes Alcohol Intake: current Alcohol Intake frequency: holidays/special occasions only Drug use: Binges Substance use type: crack/cocaine and heroin Do you feel safe at home: Yes Do you feel safe in your relationship?: Yes Exam Const General: cooperative, comfortable, well developed, disheveled and intoxicated appearing Nutritional Appearance: average body habitus and well nourished Orientation: alert, awake and oriented x3 Resp Effort & Inspection: normal respiratory effort and able to speak in complete sentences Auscultation: clear to auscultation bilaterally Cardio Rate: regular rate Rhythm: regular rhythm
== END 2022-05-19 21:20 | disposition home or self-care (01) ==
PROVIDERS: Emergency Provider Registered Nurse Emergency
DX: L03.116 Cellulitis of left lower limb (principal); L03.115 Cellulitis of right lower limb
CPT/HCPCS: 99283

== ENCOUNTER 2022-08-19 14:14 | Emergency (ER) | payer MEDICAID, SELFPAY ==
[2022-08-19 14:23] VITALS: BP 161/99; PULSE 95; TEMP 37; O2SAT 98
--- OUTSIDE RECORDS SUMMARY | 2022-08-19 14:23 | XMS_ITS ---
:1985 Author Organization [facility] Address [address], [place] [id number] Care Team Providers Name Role Phone Kandi Reyes Unavailable Unavailable PROBLEMS Type Condition ICD9-CM Code TRY69-EC Code Onset Condition SNO MED Code Dates Status Problem Ulcer of left L97.922 Active lower extremity with fat layer exposed ALLERGIES Substance Reaction Event Type Date Status Penicillin hives, lips/mouth swelling Non Drug Allergy Dec, Active Doxycycline Nausea/Vomiting Non Drug Allergy Dec, Active Tylenol #3 Stomach pain/nausea Non Drug Allergy Dec, Acti ve Amoxicillin Unknown Drug Allergy Dec, Active ENCOUNTERS Encounter Location Date Diagnosis [facility] [address] [place] [address] Dec, [facility] er of left lower [place], [place] [id number] extremit y with fat layer exposed L97.[address] Jul, ROUT POSTPART FOLLOW-UP Health [address] [place], [place] V24.[id number] Jun, POSTPA RT CARE AFTER [facility] Healthcare Op [place], [place] [id number] V[address] Jun, Health [address] [place], [place] [id number] [address] May, SUPR V HIGH-RISK PREG NEC Health [address] [place], [place] V23.[id number] May, Drug dependence Health [address] [place], [place] complicat ing , [id number] antepartum 648.3 3 [facility] [address] [facility] May, Drug dependence Health [address] [place], [place] complicat ing , [id number] antepartum 648.3 3 [facility] [address] [facility] May, SUPR V HIGH-RISK PREG NEC Health [address] [place], [place] V23.89 an d VACCIN FOR [id number] INFLUENZA V04.81 [facility] [address] [place] [address] May, SUPR V HIGH-RISK PREG NEC Health [address] [place], [place] V23.89 [id number] [facility] [address] [place] [address] Apr, SUPR V HIGH-RISK PREG NEC Health [address] [place], [place] V23.89 [id number] [facility] [address] [place] [address] Apr, SUPR V HIGH-RISK PREG NEC Health [address] [place], [place] V23.89 [id number] [facility] [address] [place] [address] Apr, Health [address] [place], [place] [id number] [facility] Mar, SUPR V HIGH-RISK PREG NEC Health [address] [place], [place] V23.89 an d HIGH-RISK [id number] SEXUAL BEHAVR V6 9.2 [facility] [address] [place] [address] Mar, SUPR V HIGH-RISK PREG NEC Health [address] [place], [place] V23.89 [id number] [facility] [address] [place] [address] Mar, Health [address] [place], [place] [id number] [facility] [address] [place] [address] Mar, Health [address] [place], [place] [id number] [facility] [address] [place] [address] Feb, Health [address] [place], [place] [id number] [facility] [address] [place] [address] Feb, Abno rmal glucose Health [address] [place], [place] tolerance complicating [id number] , antep artum 648.83 [facility] [address] [place] [address] Feb, Health [address] [place], [place] [id number] [facility] [address] [place] [address] Feb, SUPR V HIGH-RISK PREG NEC Health [address] [place], [place] V23.89 [id number] [facility] [address] [place] [address] Jan, SUPR V HIGH-RISK PREG NEC [facility] [address] [place], [place] V23.89 [id number] [facility] [address] [facility] 21 Jan, 2010 Health [address] [place], [place] [id number] [address] 14 Jan, 2010 SUPR V HIGH-RISK PREG [facility] Health [address] [place], [place] V23.89 [id number] IMMUNIZATIONS Vaccine Route Administration Date Status MARYA - Flu VACC 6 MONTHS > IM Intramuscular May 24, 2010 Admin istered SOCIAL HISTORY Never Assessed REASON FOR REFERRAL FUNCTIONAL STATUS PLAN OF CARE Activity Details Follow Up prn Reason: Future Test CULTURE SUPERFICIAL WOUND w/ GS [id number] VITAL SIGNS Weight 160 lbs 2022-01-03 Weight 188.0 lbs 2010-07-31 Temperature 97.4 degrees Fahrenheit 2022-01-03 Heart Rate 100 /min 2022-01-03 Oximetry 98 2022-01-03 Blood pressure systolic 142 mm Hg 2022-01-03 Blood pressure diastolic 89 mm Hg 2022-01-03 MEDICATIONS Medication Instructions Dosage Frequency Start End Duration Statu s Date Date Methadone HCl Orally every 12 5 ml as 12h Ac tive 10 MG/5ML hrs needed Depo-Provera Intramuscular 1 mL 30 day(s) Not -Takin 150 MG/ML every 10-12 weeks g PROCEDURES Procedure Date Ordered Result Body Site IMMUNIZATION ADMINISTRATION May 26, 2010 SUBSEQUENT CARE May 29, 2010 SUBSEQUENT CARE February 01, 2010 CARE VISIT Jun 27, 2010 SUBSEQUENT CARE May 17, 2010 SUBSEQUENT CARE Jun 12, 2010 SUBSEQUENT CARE May 03, 2010 FLU VACCINE May 26, 2010 CARE VISIT Jul 31, 2010 SUBSEQUENT CARE Mar 15, 2010 SUBSEQUENT CARE Jun 05, 2010 SUBSEQUENT CARE May 24, 2010 SUBSEQUENT CARE Apr 19, 2010 SUBSEQUENT CARE February 15, 2010 RESULTS Name Result Date Reference Range CULTURE SUPERFICIAL WOUND w/GS 2022-01-03 HEMOGLOB/HEMATOCRIT 2010-06-18 HEMATOCRIT/HEMOGLOB HCT 23.0 37.0-47.0 HGB 8.1 12.0-16.0 HIV -LRH 2010-06-18 HIV -LR HIV 1/2 ANTIBODIES - RAPID 2010-06-18 HIV 1/2 ANTIBODIES NONREACT (NORMAL: NON-REACTIVE) DRUG SCREEN URINE 2010-06-17 DRUG SCREEN URINE - [facility] ACETAMINOPHEN/APAP POSITIVE A (NORMAL: <5 u g/mL) AMPHETAMINES NEGATIVE (NORMAL: <1000 n g/mL) METHAMPHETAMINES NEGATIVE (NORMAL: <1000 ng/mL) BARBITURATES NEGATIVE (NORMAL: <300 ng /mL) BENZODIAZEPINES NEGATIVE (NORMAL: <300 ng /mL) COCAINE NEGATIVE (NORMAL: <300 ng /mL) METHADONE NEGATIVE (NORMAL: <300 ng /mL) OPIATES NEGATIVE (NORMAL: <300 ng /mL) PHENCYCLIDINE NEGATIVE (NORMAL: <25 ng/ mL) TETRAHYDROCANNABINOL NEGATIVE (NORMAL: <5 0 ng/mL) TRICYCLICS NEGATIVE (NORMAL: <1000 n g/mL) OXYCODONE NEGATIVE (NORMAL: <100 ng /mL) RAPID STREP SCREEN 2010-05-17 CHLAMYDIA/GC 7438 URINE(REF LAB) 2010-04-19 CHLAMYDIA/GC URINE (7438U) CHLAMYDIA/GC URINE (7438U) CHLAMYDIA/GC URINE (7438U) CHLAMYDIA/GC URINE (7438U) CHLAMYDIA/GC URINE (7438U) CHLAMYDIA/GC URINE (7438U) CHLAMYDIA/GC URINE (7438U) CHLAMYDIA/GC URINE (7438U) CHLAMYDIA/GC URINE (7438U) CHLAMYDIA/GC URINE (7438U) CHLAMYDIA/GC URINE (7438U) CHLAMYDIA/GC URINE (7438U) CHLAMYDIA/GC URINE (7438U) Result DRUG SCREEN URINE 2010-04-19 DRUG SCREEN URINE - [facility] ACETAMINOPHEN/APAP NEGATIVE (NORMAL: <5 u g/mL) AMPHETAMINES NEGATIVE (NORMAL: <1000 n g/mL) METHAMPHETAMINES NEGATIVE (NORMAL: <1000 ng/mL) BARBITURATES NEGATIVE (NORMAL: <300 ng /mL) BENZODIAZEPINES NEGATIVE (NORMAL: <300 ng /mL) COCAINE NEGATIVE (NORMAL: <300 ng /mL) METHADONE NEGATIVE (NORMAL: <300 ng /mL) OPIATES NEGATIVE (NORMAL: <300 ng /mL) PHENCYCLIDINE NEGATIVE (NORMAL: <25 ng/ mL) TETRAHYDROCANNABINOL NEGATIVE (NORMAL: <5 0 ng/mL) TRICYCLICS NEGATIVE (NORMAL: <1000 n g/mL) OXYCODONE NEGATIVE (NORMAL: <100 ng /mL) OBSTETRIC DIAB.SCREEN 2010-03-17 OBSTETRIC DIAB.SCREEN CBC 2010-03-15 CBC WBC 12.4 4.80-10.80 RBC 3.10 4.20-5.40 HGB 10.4 12.0-16.0 HCT 29.2 37.0-47.0 MCV 94.0 81.0-99.0 MCH 33.4 27.0-31.0 MCHC 35.5 32.0-36.0 RDW 12.3 11.50-14.50 PLT 222 130-400 MPV 7.5 7.40-10.40 OB SHORT SCREEN 2010-03-15 OB SHORT SCREEN HIV -LRH 2010-03-15 HIV -LRH REASON FOR VISIT left leg abcess, potential infection, symptoms started a couple weeks ago - pain, looks infected, swollen, difficulty walking, [employer] 6 wk follow up-is breast and bottlefeeding, is on depo-will be doing depo shots with PCP. not currently working, [employer] ? infection, FYI only, OB follow up OB, OB follow up OB, OB follow up OB, flu shot, OB follow up ob, OB follow up ob, OB follow up ob, urine culture orders, [employer] ob follow up, Needs call back from MD, OB ob f/u, WENT TO [facility] TODAY TO CHECK BABY/WOULD LIKE KNOW ABOUT LABS ETC, Needs call back from office, OB diabetic screen order, OB short screen results, OB ob f/u, OB ob f/u, ?referral to [facility] for Subutex, OB New OB pt Insurance Providers [facility] Member Patient Patient Patient Patient Patient Subscriber Subscriber Subscriber Group Insurance Plan Plan Plan Plan ID Relationship Address Phone Name Date of ID Name Date of No Type Insurance Insurance Insurance Coverage to Subscriber Address Phone Name Dates [place] [phone] [place] self Evelyn [id number] [id number] [place] [address] MEDICAID [facility] [id number]
--- NOTE | 2022-08-19 14:52 | W.ED.GENAD ---
Discharge Plan Disposition Patient Disposition: Home Condition: Improving Discharge Details Clinical Impression: Abscess of forearm, left Primary Care Provider: None,None ED Provider: Chris Torres Home Meds and New Rx's Prescriptions: New clindamycin HCl 150 mg capsule 450 mg PO TID 7 Days Qty: 63 0RF Continued bupropion HCl [Wellbutrin SR] 200 mg tablet sustained-release 12 hr 400 tab PO DAILY Label Comments: Take 2 tablet by mouth twice a day 400 mg BID buprenorphine-naloxone [Suboxone] 2-0.5 mg film 10 film buccal Discharge Instructions Instructions: Abscess (ED) Additional Instructions: Leave current dressing in place for 2 days time. As we discussed the wick will allow for drainage of the wound. Once the dressing has been taken down, please remove the wick. You then may perform daily gentle soap and water cleanse, pat dry and replace Band-Aid. As we discussed, we will allow the wound to heal by secondary intention to allow for further drainage of the purulent material. Please take antibiotics as prescribed until finished. I recommend you take an [id number] probiotic in between the doses of antibiotic once daily. Return for worsening or any other acute concerns. Medical Decision Making 37-year-old female with a history of IV drug use presents with left forearm abscess over 3 to 4 days time. It is fluctuant and tender. Bedside ultrasound reveals central area of fluid/necrosis. Patient was consented for the procedure, prepped and draped in standard sterile fashion, anesthetized with 1% lidocaine and initial needle aspiration produced 2 to 3 cc of purulent fluid, subsequent incision and drainage produced an additional 2 cc of bloody purulent fluid. A plain gauze packing was placed and dressed. I will place patient on clindamycin. She understands to remove the packing in 2 days time. She will return for any acute concerns HPI General Mode of arrival: ambulatory. Date/Time Provider Initiated Documentation: 08/19/22 14:15. Limitations to Documentation: no limitations. Information obtained by: patient. History of Present Illness 37 year old F presents to the emergency department with the chief complaint of Left forearm abscess after using IV drugs, described as moderate, Quality is described as dull and constant, and is localized to the left and upper extremity. Patient reports no radiation. Patient started experiencing this day(s) and it has been constant. No relieving factors improve symptom(s), No exacerbating factors reported . Patient notes denies fever/chills and rash. Patient did receive the following treatments prior to arrival, none Related Data Home Medications Medication Instructions Recorded Confirmed buprenorphine 2 mg-naloxone 0.5 mg 10 film buccal 08/19/22 sublingual film (Suboxone) bupropion HCl 200 mg tablet,12 hr 400 tab PO DAILY 08/19/22 08/19/22 sustained-release (Wellbutrin SR) clindamycin HCl 150 mg capsule 450 mg PO TID 7 days #63 caps 08/19/22 Previous Rx's Medication Instructions Recorded clindamycin HCl 150 mg capsule 450 mg PO TID 7 days #63 caps 08/19/22 Allergies Allergy/AdvReac Type Severity Reaction Status Date / Time amoxicillin [Amoxicillin] Allergy Intermediate Hives Unverified 08/19/22 14:26 Penicillins Allergy Verified 08/19/22 14:26 General Stated Complaint: Cellulitis KEVIN: 3 Review of Systems Narrative: No fever or chills. Continues to use IV drugs. Denies wanting treatment at this time. 6 systems were reviewed [facility] All Active Problems (Updated 08/19/22 @ 14:55 by Chris Torres MD) Abscess of forearm, left (Acute) Cellulitis and abscess of right leg (Acute) Medical History Anxiety Bipolar affective disorder Narcotic abuse Social History Smoking/Tobacco Use Status: Current every day Tobacco Type: cigarettes Smoking risk assessment performed?: Yes Alcohol Intake: current Alcohol Intake frequency: holidays/special occasions only Drug use: Binges Substance use type: crack/cocaine and heroin Details: used fentanyl this am Do you feel safe at home: Yes Do you feel safe in your relationship?: Yes Exam Narrative Exam Narrative: GEN: awake, alert, oriented 3. Pleasant, well groomed, interactive. HEAD: Normocephalic, atraumatic ENT: Mucous membranes moist, oropharynx unremarkable, External ear exam unremarkable EYES: PERRL, EOMI NECK: Full ROM, no RAMILA, no menigismus CHEST/RESP: No respiratory distress EXT: Full ROM, the left proximal volar forearm has approximately 5 x 10 cm area of raised tense and tender erythema. Neuro: Grossly normal neurologic exam, conversant, interactive. Psych: Speech fluent, thoughts congruent, affect normal Course Vital Signs Vital signs: Vital Signs Temperature 37.0 C 08/19/22 14:23 Pulse 95 H 08/19/22 14:23 Blood Pressure 161/99 H 08/19/22 14:23 Pulse Oximetry 98 08/19/22 14:23 Temperature 37.0 C 08/19/22 14:23 Temperature Source Skin 08/19/22 14:23 Pulse 95 H 08/19/22 14:23 Respiratory Effort 08/19/22 14:28 Blood Pressure 161/99 H 08/19/22 14:23 Blood Pressure Position Sitting 08/19/22 14:23 Pulse Oximetry 98 08/19/22 14:23 Oxygen Delivery Method Room Air 08/19/22 14:23 Oxygen Flow Rate 0 08/19/22 14:23 Pain Level 6 08/19/22 14:23 Procedures Abscess I/D Site: Upper Extremity Side (if applicable): Left Local Anesthetic: Lidocaine 1% Amount of anesthesia used (mL): 4 Technique: Needle Aspiration and Incised with #11 Blade Amount of fluid expressed (mL): 3 Packing used?: Plain
== END 2022-08-19 15:07 | disposition home or self-care (01) ==
PROVIDERS: Emergency Provider Emergency Medicine
DX: L02.414 Cutaneous abscess of left upper limb (principal)
CPT/HCPCS: 10060; 99283

== ENCOUNTER 2022-08-30 09:34 | Emergency (ER) | payer MEDICAID, SELFPAY ==
[2022-08-30 09:43] VITALS: BP 161/89; PULSE 113; TEMP 36.5; O2SAT 95
--- NOTE | 2022-08-30 11:15 | NUR.NOTE ---
Nursing Note: Verbal instructions given to pt by provider, printed instructions mailed to pt.
--- NOTE | 2022-09-02 17:45 | ED.GENADUL_ITS ---
Discharge Plan Disposition Patient Disposition: Home Discharge Details Clinical Impression: Abscess of forearm, left, Abscess of left leg Primary Care Provider: None,None ED Provider: Syeda Joshi Home Meds and New Rx's Prescriptions: New clindamycin HCl 150 mg capsule 150 mg PO TID Qty: 9 0RF Continued clindamycin HCl 150 mg capsule 150 mg PO 3XD bupropion HCl [Wellbutrin SR] 200 mg tablet sustained-release 12 hr 400 tab PO DAILY Patient Comments: Take 2 tablet by mouth twice a day 400 mg BID buprenorphine-naloxone [Suboxone] 2-0.5 mg film 10 film buccal 2XD Discharge Instructions Instructions: Abscess (ED) Additional Instructions: Take antibiotics as prescribed, you must take your clindamycin, 3 tablets 3 times a day or your wounds will worsen I am listing [facility]'s information see me follow-up Please apply warm compresses and soaks to your wounds Yogurt daily while on the antibiotic Return with fever, chills, or with any new or worsening complaints Referrals: [facility] [Outside] [facility] [Outside] Discharge Data Discharge Date/Time-TO BE ENTERED AT DEPARTURE: 08/30/22 11:10 Medical Decision Making This 37-year-old female presents with history of IV drug abuse with numerous abscesses, she was prescribed antibiotics 2 weeks ago and did not start taking them until today She is very agitated throughout her encounter but does agree to let me drain her abscess on her left side, left abscess on her left upper arm appears significantly improved and is still draining slightly without surrounding cellulitis She is fully alert and oriented at the time of my assessment and given her polysubstance abuse I did recommend starting her on single antibiotic once daily, however she does not want to wait. Prescribed any medication and she states that she Take the clindamycin. Times a day as distracted Extending her antibiotics. 14 days I am concerned about her, she is tachycardic, and I do recommend further investigation with IV and labs, she has refused 7 Maria Del Rosario is fully alert, oriented and under stands she is not at risk for further decompensation, loss of limb, and even Offered disaster recovery analyst which she is declined She is encouraged to return immediately with stability Medical Records Medical records reviewed: Yes I reviewed the patient's medical records. Lab Data Lab results reviewed: Yes I reviewed the patient's lab results. HPI General Date/Time Provider Initiated Documentation: 08/30/22 09:38 . HPI Narrative: This 37-year-old female presents with abscess to her left arm and left eye. She states that the abscess on her left arm was drained the last week. She states she was started on antibiotics, she did not start today, she is only taken 1 dose. She denies any chance of . She denies any fevers. She last used heroin this morning. Denies any chest pain or shortness of breath. Denies any fever or chills. States I need to leave wiin the next 20 minutes Related Data Home Medications Medication Instructions Recorded Confirmed buprenorphine 2 mg-naloxone 0.5 mg 10 film buccal 2XD 08/19/22 08/30/22 sublingual film (Suboxone) bupropion HCl 200 mg tablet,12 hr 400 tab PO DAILY 08/19/22 08/30/22 sustained-release (Wellbutrin SR) clindamycin HCl 150 mg capsule 150 mg PO 3XD 08/30/22 08/30/22 clindamycin HCl 150 mg capsule 150 mg PO TID #9 caps 08/30/22 Previous Rx's Medication Instructions Recorded clindamycin HCl 150 mg capsule 150 mg PO TID #9 caps 08/30/22 Allergies Allergy/AdvReac Type Severity Reaction Status Date / Time amoxicillin [Amoxicillin] Allergy Intermediate Hives Unverified 08/30/22 10:10 Penicillins Allergy Verified 08/30/22 10:10 General Stated Complaint: RashLesion KEVIN: 3 PFSH All Active Problems (Updated 08/30/22 @ 11:03 by JOANNA Santana) Abscess of forearm, left (Acute) Abscess of left leg (Acute) Cellulitis and abscess of right leg (Acute) Medical History Anxiety Bipolar affective disorder Narcotic abuse Social History Smoking/Tobacco Use Status: Current every day Tobacco Type: cigarettes and pipe Smoking risk assessment performed?: Yes Alcohol Intake: current Alcohol Intake frequency: holidays/special occasions only Drug use: Binges Substance use type: crack/cocaine and heroin Details: used fentanyl this am Do you feel safe at home: Yes Do you feel safe in your relationship?: Yes Exam Const General: cooperative, comfortable and no acute distress Eyes Pupils: PERRL Extrem Other: Abscess to left forearm, thigh, left thigh with central eschar and fluctuance no crepitus Track orona noted to bilateral lower extremities Neurovascularly intact, no lymphangitis Course Vital Signs Vital signs: Vital Signs Temperature 36.5 C 08/30/22 09:43 Pulse 113 H 08/30/22 09:43 Blood Pressure 161/89 H 08/30/22 09:43 Pulse Oximetry 95 08/30/22 09:43 Temperature 36.5 C 08/30/22 09:43 Temperature Source Temporal Artery Scan 08/30/22 09:43 Pulse 113 H 08/30/22 09:43 Respiratory Effort Normal 08/30/22 10:14 Blood Pressure 161/89 H 08/30/22 09:43 Blood Pressure Position Sitting 08/30/22 09:43 Pulse Oximetry 95 08/30/22 09:43 Oxygen Delivery Method Room Air 08/30/22 09:43 Oxygen Flow Rate 0 08/30/22 09:43 Procedures Abscess I/D Site: Lower Extremity Side (if applicable): Left Sedation/analgesia: None Local Anesthetic: Lidocaine 1% Amount of anesthesia used (mL): 3 Technique: Incised with #11 Blade Amount of fluid expressed (mL): 30 Irrigation: Yes Packing used?: None
== END 2022-08-30 11:10 | disposition home or self-care (01) ==
PROVIDERS: Emergency Provider Physician Assistant
DX: L02.416 Cutaneous abscess of left lower limb (principal); L02.414 Cutaneous abscess of left upper limb
CPT/HCPCS: 10060

== ENCOUNTER 2023-10-27 13:12 | Emergency (ER) | payer MEDICAID, SELFPAY ==
[2023-10-27 13:19] VITALS: BP 173/105; PULSE 121; RESP 16; TEMP 35.8; O2SAT 96
--- NOTE | 2023-10-27 13:54 | ED.GENADUL_ITS ---
Discharge Plan Disposition Patient Disposition: Against Medical Advice Discharge Details Clinical Impression: Cellulitis and abscess of right leg Primary Care Provider: Unknown,Unknown ED Provider: Ayo Grider Home Meds and New Rx's Prescriptions: New cephalexin 500 mg capsule 500 mg PO QID 10 Days Qty: 40 0RF doxycycline hyclate 100 mg capsule 100 mg PO BID 10 Days Qty: 20 0RF No Action bupropion HCl [Wellbutrin SR] 200 mg tablet sustained-release 12 hr 400 tab PO DAILY Hold Instructions: Formulary/Insurance Patient Comments: Take 2 tablet by mouth twice a day 400 mg BID buprenorphine-naloxone [Suboxone] 2-0.5 mg film 10 film buccal 2XD Hold Instructions: Formulary/Insurance HPI General Mode of arrival: ambulatory . Date/Time Provider Initiated Documentation: 10/27/23 13:14 . Limitations to Documentation: no limitations . Information obtained by: patient . HPI Narrative: 38-year-old female history of IV drug abuse now presents with right leg redness and pain. Injected some heroin into her right leg little over a week ago. Started with redness warmth in the right medial thigh shortly thereafter about a week ago. Today and yesterday started with boil and drainage from the right medial thigh. He was getting worse and more painful so she came here. She denies any other complaints. Related Data Home Medications Medication Instructions Recorded Confirmed buprenorphine 2 mg-naloxone 0.5 mg 10 film buccal 2XD 08/19/22 10/27/23 sublingual film (Suboxone) bupropion HCl 200 mg tablet,12 hr 400 tab PO DAILY 08/19/22 10/27/23 sustained-release (Wellbutrin SR) cephalexin 500 mg capsule 500 mg PO QID 10 days #40 caps 10/27/23 doxycycline hyclate 100 mg capsule 100 mg PO BID 10 days #20 caps 10/27/23 Previous Rx's Medication Instructions Recorded cephalexin 500 mg capsule 500 mg PO QID 10 days #40 caps 10/27/23 doxycycline hyclate 100 mg capsule 100 mg PO BID 10 days #20 caps 10/27/23 Allergies Allergy/AdvReac Type Severity Reaction Status Date / Time amoxicillin [Amoxicillin] Allergy Intermediate Hives Unverified 10/27/23 13:18 Penicillins Allergy Swelling/Ed Verified 10/27/23 13:18 rosanna General Stated Complaint: Cellulitis KEVIN: 3 Review of Systems Constitutional Constitutional: Denies chills, Denies fever(s) and Denies headache(s) Eyes Eyes: Denies change in vision ENT Ears, Nose, Mouth, and Throat: Denies headache(s) and Denies odynophagia Cardiovascular Cardiovascular: Denies chest pain and Denies dyspnea Respiratory Respiratory: Denies dyspnea Gastrointestinal Gastrointestinal: Denies abdominal pain, Denies diarrhea, Denies nausea, Denies odynophagia and Denies vomiting Genitourinary Genitourinary: Denies dysuria Musculoskeletal Musculoskeletal: Denies myalgias Integumentary/Breasts Skin/Breast: Reports furuncle and Reports rash Neurologic Neurologic: Denies behavioral changes and Denies headache(s) Psychiatric Psychiatric: Denies behavioral changes Endocrine Endocrine: Denies heat intolerance Hematologic/Lymphatic Hematologic/Lymphatic: Denies lymphadenopathy Exam Const General: cooperative Nutritional Appearance: average body habitus Orientation: alert, awake and oriented x3 HENMT Head: normal to inspection Ears: external ears normal Mouth: moist mucous membranes Eyes Pupils: PERRL EOM: EOM intact bilaterally and No nystagmus Neck Neck: full ROM and no tracheal deviation Chest Chest: normal inspection of the chest Resp Auscultation: clear to auscultation bilaterally Cardio Rate: regular rate Rhythm: regular rhythm GI Inspection: normal to inspection Palpation: soft, no guarding, not rigid and nontender Back/Spine/Pelvis Back: No no CVA tenderness Thoracic/Lumbar Spine: thoracic and lumbar spine normal to inspection Skin General skin exam: no rashes or lesions noted Neuro General: patient alert, patient awake and patient oriented x3 Cranial Nerves: CN's II-XI intact bilaterally, PERRL and no nystagmus Cognition: normal cognition Motor: muscle tone normal throughout and strength 5/5 throughout Sensory Exam: no sensory deficits noted Extrem Other: Patient has draining abscess in the right medial thigh midway between the hip and the knee. It is draining purulent material. There is significant surrounding redness and swelling. There is another area similar about 2 cm more medial to it that again looks like an area of abscess formation. Compartments of the lower extremity are soft. Circulation, sensation, and motor intact in the bilateral lower extremities. Course Vital Signs Vital signs: Vital Signs Temperature 35.8 C L 10/27/23 13:19 Pulse 121 H 10/27/23 13:19 Respiratory Rate 16 10/27/23 13:19 Blood Pressure 173/105 H 10/27/23 13:19 Pulse Oximetry 96 10/27/23 13:19 Temperature 35.8 C L 10/27/23 13:19 Temperature Source Temporal Artery Scan 10/27/23 13:19 Pulse 121 H 10/27/23 13:19 Respiratory Rate 16 10/27/23 13:19 Respiratory Effort Normal, Non-Labored 10/27/23 13:21 Blood Pressure 173/105 H 10/27/23 13:19 Blood Pressure Position Sitting 10/27/23 13:19 Pulse Oximetry 96 10/27/23 13:19 Oxygen Delivery Method Room Air 10/27/23 13:19 Oxygen Flow Rate 0 10/27/23 13:19 Pain Level 9 10/27/23 13:19 Lab/Test Results Lab/Test Results: 10/27/23 13:51 Blood Blood Culture - Pending 10/27/23 13:51 Blood Blood Culture - Pending Medical Decision Making This is a 38-year-old female who presents with a rash on the right leg. It appears the patient has an abscess formation in the right thigh with surrounding cellulitis. Will get cultures and give some antibiotics to treat this. Will get a CT with contrast to look to see how far the abscess may be tracking down into the tissue. Certainly if it is superficial we can consider incision and drainage. She is afebrile presently I think is less likely to represent sepsis but obtaining cultures as above and giving some antibiotics. Will provide some analgesia while awaiting initial imaging and reevaluate. Considered necrotizing infection but no signs of crepitus and no fever or hypotension and patient is otherwise well-appearing so I think that this is much less likely but certainly will follow-up CT. 324pm Labs were unremarkable other than elevated ESR and CRP. No leukocytosis. Still hemodynamically stable. Patient said that she needed to leave the emergency department. I strongly recommended against this so that we can get the CAT scan and perform an incision and drainage. Patient said she was leaving now. Patient left the emergency department AGAINST MEDICAL ADVICE. Will still send antibiotics to her pharmacy and I instructed patient about this but told her that this is unlikely to get better with just oral antibiotics and that I do think she needs a CAT scan and an incision and drainage. She expresses understanding and certainly had capacity to make this decision. Understands that this could lead to worse infection which could lead to permanent disability or . She expressed these risks back to me and understood. Patient left the emergency department AGAINST MEDICAL ADVICE. Lab Data Lab results reviewed: Yes I reviewed the patient's lab results. Labs: Labs with elevated ESR and CRP but otherwise grossly unremarkable. No leukocytosis. Quality:SDOH Health Related Social Needs: No Data to Display PFSH All Active Problems (Updated 10/27/23 @ 15:26 by Ayo Grider MD) Cellulitis and abscess of right leg (Acute) Medical History Narcotic abuse Bipolar affective disorder Anxiety Social History Smoking/Tobacco Use Status: Current every day Tobacco Type: cigarettes and pipe Smoking risk assessment performed?: Yes Alcohol Intake: current Alcohol Intake frequency: holidays/special occasions only Drug use: Binges Substance use type: crack/cocaine, heroin and IV drugs Details: used fentanyl this am Housing: homeless Do you feel safe at home: Yes Do you feel safe in your relationship?: Yes
[2023-10-27 14:15] LABS: Abs Immature Grans 0.08 10^3/uL (0.0-0.06); Absolute Basophil Count 0.03 10^3/uL (0.0-0.2); Absolute Eosinophil Count 0.03 10^3/uL (0.0-0.7); Absolute Neutrophil Count 6.02 10^3/uL (1.2-6.7); Basophils % 0.3; Eosinophils % 0.3; HCT 35.4 % (36.0-46.0); HGB 11.5 g/dL (11.2-15.7); Immature Grans % 0.9; Lymphocytes % 21.7; MCH 28.3 pg (27.0-33.0); MCHC 32.5 % (32.0-36.0); MCV 87 fL (80-95); MPV 9.3 fL (8.0-11.0); Neutrophils % 68.8; Platelet Count 400 10^3/uL (130-400); RBC 4.07 10^6/uL (3.93-5.22); RDW 14.2 % (11.7-14.6); RDW-SD 45.4 fL; WBC 8.76 10^3/uL (4.4-10.8)
[2023-10-27] MEDS: Ketorolac 30 MG/ML VIAL IVP (14:17)
[2023-10-27 14:19] LABS: ESR 81 mm/hr (0-20)
[2023-10-27 14:30] LABS: Lactate 1.2 mmol/L (0.6-1.4)
[2023-10-27 14:56] LABS: ALT 22 U/L (14-59); AST 20 U/L (15-37); Albumin 2.6 g/dL (3.4-5.0); Alkaline Phosphatase 66 U/L (46-116); Anion Gap 8.6 mmol/L (3-11); BUN 11 mg/dL (7-18); Bilirubin, Total 0.4 mg/dL (0.2-1.0); C-Reactive Protein 11.12 mg/dL (<or=0.5); CO2 28.4 mmol/L (21.0-32.0); CREATININE 0.9 mg/dL (0.55-1.02); Calcium 8.6 mg/dL (8.5-10.1); Chloride 100 mmol/L (98-107); Creatine Kinase 105 U/L (26-192); Estimated GFR 84.97 (mL/min/1.73m2); Glucose 202 mg/dL (74-106); Magnesium 1.9 mg/dL (1.8-2.4); Potassium 3.7 mmol/L (3.5-5.1); Sodium 137 mmol/L (136-145); Total Protein 7.9 g/dL (6.4-8.2)
== END 2023-10-27 15:26 | disposition left against medical advice (07) ==
PROVIDERS: Emergency Provider Student in an Organized Health Care Education/Training Program
DX: L03.115 Cellulitis of right lower limb (principal); L02.415 Cutaneous abscess of right lower limb; F11.10 Opioid abuse, uncomplicated
CPT/HCPCS: 36415; 80053; 82550; 85652; 87040; 96374; 96375; 99284; 83605; 83735; 85025; 86140; 99283; J0690; J1885

== ENCOUNTER 2023-10-30 23:51 | Emergency (ER) | payer MEDICAID, SELFPAY ==
[2023-10-30 23:55] VITALS: BP 150/102; PULSE 77; RESP 18; TEMP 36.7; O2SAT 98
--- NOTE | 2023-10-31 00:19 | ED.GENADUL_ITS ---
Discharge Plan Disposition Patient Disposition: Home Condition: Good Discharge Details Clinical Impression: Cellulitis of leg, right Primary Care Provider: Unknown,Unknown ED Provider: Claude Vegas Home Meds and New Rx's Prescriptions: New clindamycin HCl 150 mg capsule 450 mg PO QID 10 Days Qty: 120 0RF Discontinued cephalexin 500 mg capsule 500 mg PO QID 10 Days Qty: 40 0RF doxycycline hyclate 100 mg capsule 100 mg PO BID 10 Days Qty: 20 0RF No Action bupropion HCl [Wellbutrin SR] 200 mg tablet sustained-release 12 hr 400 tab PO DAILY Hold Instructions: Formulary/Insurance Patient Comments: Take 2 tablet by mouth twice a day 400 mg BID buprenorphine-naloxone [Suboxone] 2-0.5 mg film 10 film buccal 2XD Hold Instructions: Formulary/Insurance Discharge Instructions Instructions: Cellulitis (ED) Additional Instructions: At this time thankfully there is not evidence of an abscess in the leg. Your infection does appear to be notably improving. Please take the antibiotics as directed. It has been sent to your pharmacy on file. Please return in the next 48 hours for recheck. If you notice spreading redness, worsening discharge, or worsening pain please return. If you notice any worsening of your symptoms, or any new symptoms such as vomiting, diarrhea, fever, chills, shortness of breath, chest pain, numbness, weakness, or fainting , please return immediately to the emergency department for reevaluation. Please follow up with your primary care provider as soon as possible for reassessment and reevaluation. As always, it was a pleasure participating in your medical care today. HPI General Date/Time Provider Initiated Documentation: 10/30/23 23:51 . HPI Narrative: 38-year-old female with a past medical history of IV drug use and recent cellulitis in the right side where she does regularly inject who was seen and assessed 3 days ago here in the emergency department. She had cellulitis at that time. She refused CT scan was discharged AGAINST MEDICAL ADVICE/recommendations. She was prescribed doxycycline and Keflex, she has taken this for 2 days unfortunately it did cause nausea and vomiting with the doxycycline and so she did not take it today. She presents today [facility]. She requested to be evaluated for the leg. She states that the redness has significantly been improving. It is now draining discharge fairly consistently. Pain has improved. No other complaints at this time. Related Data Home Medications Medication Instructions Recorded Confirmed buprenorphine 2 mg-naloxone 0.5 mg 10 film buccal 2XD 08/19/22 10/31/23 sublingual film (Suboxone) bupropion HCl 200 mg tablet,12 hr 400 tab PO DAILY 08/19/22 10/31/23 sustained-release (Wellbutrin SR) clindamycin HCl 150 mg capsule 450 mg (3 x 150 mg) PO QID 10 days 10/31/23 #120 caps Previous Rx's Medication Instructions Recorded clindamycin HCl 150 mg capsule 450 mg (3 x 150 mg) PO QID 10 days 10/31/23 #120 caps Allergies Allergy/AdvReac Type Severity Reaction Status Date / Time amoxicillin [Amoxicillin] Allergy Intermediate Hives Unverified 10/27/23 13:18 Penicillins Allergy Swelling/Ed Verified 10/27/23 13:18 rosanna General Stated Complaint: Recheck KEVIN: 3 Review of Systems All systems reviewed & are unremarkable except as noted in HPI and below Exam Narrative Exam Narrative: 1.Const: Well-nourished, Well-developed, appearing stated age 2.Eyes: PERRL, no conjunctival injection, and symmetrical lids. 3.ENT: Atraumatic external nose and ears. Moist MM. Neck: Symmetric, trachea midline, No thyromegaly. 4.CVS: +S1/S2, No murmurs or gallops. Peripheral pulses 2+ and equal in all extremities. Brisk capillary refill in all extremities. 5.RESP: Unlabored respiratory effort. Clear to auscultation bilaterally. No wheezes rales or rhonchi 6.GI: Soft, Nontender/Nondistended, No hepatosplenomegaly. No guarding or rebound. 7.MSK: Normocephalic/Atraumatic, Extremities w/o deformity or ttp No cyanosis or clubbing, Normal movement of all extremities. Patient does demonstrate an area of redness on the right anterior thigh, mild induration throughout, no fluctuance though. Dimensions are slightly oblong in circumference, however dimension patterns are 13 cm by about 12 cm. The previous area of redness appears to be notably improved which was a few centimeters out from the diameter in every direction. There are 2 central ulcers, currently using small amount of purulent discharge. Limited bedside ultrasound shows no large fluid collection or no evidence of abscess. Mild cobblestoning amongst the fat tissues. No sloughing of the skin. No other lesions. 8.Skin: Warm, Dry. Please see musculoskeletal 9.Neuro: rn school II-XII grossly intact. Sensation grossly intact, no focal neurologic deficits. 10.Psych: (AAO) x3. Appropriate mood and affect Course Vital Signs Vital signs: Vital Signs Temperature 36.7 C 10/30/23 23:55 Pulse 77 10/30/23 23:55 Respiratory Rate 18 10/30/23 23:55 Blood Pressure 150/102 H 10/30/23 23:55 Pulse Oximetry 98 10/30/23 23:55 Temperature 36.7 C 10/30/23 23:55 Temperature Source Skin 10/30/23 23:55 Pulse 77 10/30/23 23:55 Respiratory Rate 18 10/30/23 23:55 Blood Pressure 150/102 H 10/30/23 23:55 Blood Pressure Position Sitting 10/30/23 23:55 Pulse Oximetry 98 10/30/23 23:55 Oxygen Delivery Method Room Air 10/30/23 23:55 Oxygen Flow Rate 0 10/30/23 23:55 Pain Level 6 10/30/23 23:55 Medical Decision Making 38-year-old female with a past medical history of IV drug use and recent cellulitis in the right side where she does regularly inject who was seen and assessed 3 days ago here in the emergency department. She had cellulitis at that time. She refused CT scan was discharged AGAINST MEDICAL ADVICE/recommendations. She was prescribed doxycycline and Keflex, she has taken this for 2 days unfortunately it did cause nausea and vomiting with the doxycycline and so she did not take it today. She presents today in partial custody from [place] [employer] police. She requested to be evaluated for the leg. She states that the redness has significantly been improving. It is now draining discharge fairly consistently. Pain has improved. No other complaints at this time. Exam demonstrates well-appearing female, Patient does demonstrate an area of redness on the right anterior thigh, mild induration throughout, no fluctuance though. Dimensions are slightly oblong in circumference, however dimension patterns are 13 cm by about 12 cm. The previous area of redness appears to be notably improved which was a few centimeters out from the diameter in every direction. There are 2 central ulcers, currently using small amount of purulent discharge. Limited bedside ultrasound shows no large fluid collection or no evidence of abscess. Mild cobblestoning amongst the fat tissues. No sloughing of the skin. No other lesions. Patient has notable improvement of her cellulitis compared to prior visit with the significant decrease in swelling, no evidence of abscess, decrease in redness, and now active mild drainage. Secondary to GI intolerance we will transition her antibiotic to clindamycin. Will stop the Keflex and doxycycline. Will give a dose here, and a prescription for home use. She has no tachycardia or fever. She has not taken any NSAIDs tonight. Patient shows no evidence of necrotizing fasciitis, sepsis, or other life-threatening etiology. Recommend continued clindamycin use, and then close follow-up in the next 48 hours to continue to monitor for wound improvement. Discussed red flags for which to return. I have extensively reviewed the treatment plan and discharge instructions with the patient. I have addressed all patient concerns at this time. The patient was made aware of what symptoms to monitor for that would warrant a return to the emergency department. Discussed the plan with the patient, they demonstrate verbal understanding and agreement with our assessment and plan at this time. The documentation in this chart was dictated using [employer] dictation software. Please excuse any dictation errors. Quality:SDOH Health Related Social Needs: No Data to Display PFSH All Active Problems Cellulitis of leg, right (Acute) Cellulitis and abscess of right leg (Acute) Medical History Narcotic abuse Bipolar affective disorder Anxiety Social History Smoking/Tobacco Use Status: Current every day Tobacco Type: cigarettes and pipe Smoking risk assessment performed?: Yes Alcohol Intake: current Alcohol Intake frequency: holidays/special occasions only Drug use: Binges Substance use type: crack/cocaine, heroin and IV drugs Details: used fentanyl this am Housing: homeless Do you feel safe at home: Yes Do you feel safe in your relationship?: Yes POCUS Exam (ED) Limited Soft Tissue Exam DATE OF EXAM: 10/31/23 TIME OF EXAM: 00:30 PROVIDER THAT PERFORMED THE STUDY: Claude Vegas IS THIS A REPEAT EXAM DURING THIS ENCOUNTER: No LOCATION OF EXAM: Lower extremity/right REASON FOR EXAM: Redness and Swelling VISUALIZED STRUCTURES: Skin and Subcutaneous tissue PERTINENT FINDINGS/IMPRESSION: Cellulitis Right anterior thigh and Cobblestoning (Right anterior thigh) Right anterior thigh . Exam Complete
[2023-10-31] MEDS: Clindamycin 150 MG CAP 450 MG PO (00:28)
[2023-10-31] MEDS: Clindamycin 150 MG CAP, 12 CAPS/BTL 450 MG PO (00:29)
[2023-10-31 00:40] VITALS: BP 132/80; PULSE 88; RESP 20; TEMP 37.1; O2SAT 98
== END 2023-10-31 00:37 | disposition home or self-care (01) ==
PROVIDERS: Emergency Provider Student in an Organized Health Care Education/Training Program
DX: L03.115 Cellulitis of right lower limb (principal); F19.10 Other psychoactive substance abuse, uncomplicated
CPT/HCPCS: 76882; 99284

== ENCOUNTER 2024-10-26 10:56 | Emergency (ER) | payer MEDICAID, SELFPAY ==
[2024-10-26] VITALS (27 sets, daily range): BP systolic 105–170; BP diastolic 74–142; PULSE 88–188; RESP 15–22; TEMP 36.3–37.6; O2SAT 92–100
--- NOTE | 2024-10-26 11:43 | W.ED.GENAD ---
Discharge Plan Disposition Patient Disposition: Transfer-Acute Inpatient Care Specific Acute Inpt Facility: [facility] Condition: Critical Discharge Details Chief Complaint: GenMedical Clinical Impression: Necrotizing fasciitis of pelvic region and thigh, Cellulitis and abscess of right leg, NICOLE (acute kidney injury), Acute hyperglycemia, Sepsis Primary Care Provider: Unknown,Unknown ED Provider: Cass Romo Home Meds and New Rx's Prescriptions: No Action bupropion HCl [Wellbutrin SR] 200 mg tablet sustained-release 12 hr 400 tab PO DAILY Patient Comments: Take 2 tablet by mouth twice a day 400 mg BID buprenorphine-naloxone [Suboxone] 2-0.5 mg film 10 film buccal 2XD Discharge Data Discharge Date/Time-TO BE ENTERED AT DEPARTURE: 10/26/24 15:10 HPI General Date/Time Provider Initiated Documentation: 10/26/24 11:04. Limitations to Documentation: no limitations. Information obtained by: patient, RN notes reviewed and old records reviewed. History of Present Illness 39 year old F presents to the emergency department with the chief complaint of right knee swelling, pain, described as severe, Quality is described as stabbing, and is localized to the right and lower extremity. Patient reports no radiation. Patient started experiencing this day(s) (4) and it has been constant. Immobilization improves symptom(s), Movement worsens symptoms . Patient notes fever/chills, loss of appetite, malaise and rash; denies chest pain, nausea/vomiting and shortness of breath. Patient did receive the following treatments prior to arrival, none Related Data Home Medications ?Medication ?Instructions ?Recorded ?Confirmed buprenorphine 2 mg-naloxone 0.5 mg 10 film buccal 2XD 08/19/22 10/26/24 sublingual film (Suboxone) bupropion HCl 200 mg tablet,12 hr 400 tab PO DAILY 08/19/22 10/26/24 sustained-release (Wellbutrin SR) Allergies Allergy/AdvReac Type Severity Reaction Status Date / Time amoxicillin (Amoxicillin) Allergy Intermediate Hives Unverified 10/26/24 11:14 Penicillins Allergy Swelling/Ed Verified 10/26/24 11:14 rosanna General Stated Complaint: GenMedical KEVIN: 3 Review of Systems Constitutional Constitutional: Reports as per HPI, Reports chills, Reports fatigue, Reports fever(s), Denies headache(s), Reports malaise, Reports poor appetite and Denies weakness ENT Ears, Nose, Mouth, and Throat: Denies headache(s) Cardiovascular Cardiovascular: Reports as per HPI, Denies chest pain, Denies edema, Denies dyspnea and Denies dyspnea on exertion Respiratory Respiratory: Reports as per HPI, Denies cough, Denies dyspnea and Denies dyspnea on exertion Gastrointestinal Gastrointestinal: Reports as per HPI, Denies abdominal pain, Reports nausea and Denies vomiting Musculoskeletal Musculoskeletal: Reports as per HPI, Reports abnormal gait, Reports arthralgias, Reports joint swelling, Reports limited range of motion, Reports stiffness and Denies tingling Integumentary/Breasts Skin/Breast: Reports as per HPI Neurologic Neurologic: Reports as per HPI, Reports abnormal gait, Denies headache(s), Denies tingling, Denies paresthesias and Denies weakness Endocrine Endocrine: Reports fatigue Exam Const General: cooperative, not healthy appearing, comfortable, no acute distress, well developed and ill appearing acutely Nutritional Appearance: average body habitus Orientation: alert and awake Resp Effort & Inspection: normal respiratory effort, able to speak in complete sentences and no respiratory distress Auscultation: clear to auscultation bilaterally Cardio Rate: regular rate Rhythm: regular rhythm Heart Sounds: S1 normal and S2 normal Skin General skin exam: erythema and induration Neuro General: patient alert and patient awake Cognition: normal cognition Speech: speech normal Gait: antalgic and gait assisted Sensory Exam: no sensory deficits noted Course Vital Signs Vital signs: Vital Signs Temperature 36.3 C L 10/26/24 11:04 Pulse 107 H 10/26/24 11:04 Respiratory Rate 22 10/26/24 11:04 Blood Pressure 106/77 10/26/24 11:04 Pulse Oximetry 97 10/26/24 11:04 Temperature 36.3 C L 10/26/24 11:04 Temperature Source Oral 10/26/24 11:04 Pulse 107 H 10/26/24 11:04 Respiratory Rate 15 10/26/24 11:25 Respiratory Effort Normal 10/26/24 11:25 Respiratory Depth Normal 10/26/24 11:25 Respiratory Pattern Normal 10/26/24 11:25 Blood Pressure 106/77 10/26/24 11:04 Blood Pressure Position Sitting 10/26/24 11:04 Pulse Oximetry 97 10/26/24 11:04 Oxygen Delivery Method Room Air 10/26/24 11:04 Oxygen Flow Rate 0 10/26/24 11:04 Pain Level 7 10/26/24 11:04 Medical Decision Making Patient is a pleasant 39-year-old female with past medical history significant for IV drug use, right lower extremity cellulitis, presented with chief complaint of right leg pain and erythema. She reports this began about 4 days ago. She is in this been improved but has steadily increased in size, discomfort and spontaneously open this morning she reports draining foul-smelling bloody discharge. She does state that she fell on this knee last week. She continues to use crack cocaine but states that she typically is injecting in her upper extremities and is not injected in this area. She reports that she has had fevers and chills, took an antipyretic prior to arrival. She endorses a large amount of anxiety, states that she did use crack this morning but does feel like she may be starting to have some withdrawals. Does not believe that she is . Has had difficulty ambulating, currently unhoused. On exam, patient appears acutely ill and uncomfortable. She has difficulty with ambulation, minimal weight on the right lower extremity. She is tachy, anxious. Will give anxiolytic. Exam of the right leg shows a very swollen and red leg from upper thigh to mid calf. No pain in calf or foot pain. She has 1+ distal pulses. Minimal ROM of the right knee. Large amount of bloody/purulent discharge from small opening just inferior to the patellar tendon. Large, open blisters over anterior knee. Surrounding erythema, weeping. Concerned for sepsis. She is tachycardic, leg is clearly infected. Conncerned for nec fasc, infected joint, deep spave abscess vs. other. Will obtain labs, culture blood and draining fluid. Will begin abx. Give morphine for pain, ativan for anxiety. Image obtained for review by specialists with patient permission, attached below Ortho at bedside, evaluated the leg. Based on ROM, does not feel that she has infected joint but is concerned for necrotizing fasciitis. Obtaining CT now. POC PG negative. Labs reviewed. Leukocytosis. Lactate 4.5. Sodium 129, corrects to 134 with glucose >3. No known hx of DM, not on any daily medications. Dr. Yip reviewed the images, advised that no emergent surgical intervention at this time. However, given the severity of infection, recommended transfer to higher level of care. Have pushed images to [facility]. Called [facility] to discuss transfer of care. Dr. Yip called back, he is concerned for non-gas forming microbe as source of infectio nbut still is concerned for necrotizing fasciitis and advises patient may need to have amputation. This was also relayed to [facility]. They do not believe they have beds but will check. As bed is highly unlikely with this report, will call [facility] as [facility]. Have pushed images to [facility] as well. [facility] is tight on beds but will try to accept. Image was pushed to as well. [facility] called back, Dr. Curtis with acute care surgery graciously accepted in transfer. WIll add cipro and flagyl. Discussed with patient who agrees to transfer. Patietn send to via EMS, remained hemodynamically stable. High risk of detioration. Quality:SDOH Health Related Social Needs: No Data to Display [facility] All Active Problems (Updated 10/26/24 @ 16:21 by JOANNA Braun) Sepsis (Acute) Acute hyperglycemia (Acute) NICOLE (acute kidney injury) (Acute) Necrotizing fasciitis of pelvic region and thigh (Acute) Cellulitis and abscess of right leg (Acute) Medical History Narcotic abuse Bipolar affective disorder Anxiety Social History Smoking/Tobacco Use Status: Current every day Tobacco Type: cigarettes and pipe Smoking risk assessment performed?: Yes Alcohol Intake: current Alcohol Intake frequency: holidays/special occasions only Drug use: Binges Substance use type: crack/cocaine, heroin and IV drugs Details: used crack about this 5am today Housing: homeless Do you feel safe at home: Yes Do you feel safe in your relationship?: Yes
--- NOTE | 2024-10-26 12:00 | DI.CT_ITS ---
Exam(s) CT LOWER EXTREMITY RT W EXAM: CT LOWER EXTREMITY RT W CLINICAL HISTORY: right knee/lower extremity infection. TECHNIQUE: Imaging Protocol: Axial computed tomography images with coronal and sagittal reformatted images were created and reviewed. CONTRAST MATERIAL: Intravenous: Omnipaque 350 Contrast volume:structured data in ml Contrast route:IV - COMPARISON: No exams were available for comparison FINDINGS: Bones: There is no evidence of fracture or dislocation. No cellulitic or osteomyelitic changes are identified. No lytic or sclerotic lesions are identified. Joints: There is no significant joint space narrowing. No significant periarticular spurring. Soft Tissues: Enlarged right groin lymph nodes, reactive. Subcutaneous edema, greatest anteriorly a round the level of the knee. No drainable collection. Anterior skin with gauze in place. No foreig n body. IMPRESSION: Severe soft tissue swelling anteriorly at the level of the knee. No definite drainable collection. RADIATION DOSE DELIVERED: 1,050.61mGy.cm Total DLP DATA REPOSITORY: All CT scans at this facility are submitted to the National Radiology Data Registry (NRDR) Dose Index Registry (DIR) with the [employer] (A[employer]). RADIATION OPTIMIZATION: All CT scans at this facility use at least one of these dose optimization te chniques: automated exposure control; mA and/or kV adjustment per patient size (includes targeted exa ms where dose is matched to clinical indication); or iterative reconstruction.
[2024-10-26 12:08] LABS: Abs Immature Grans 0.22 10^3/uL (0.0-0.06); Absolute Basophil Count 0.02 10^3/uL (0.0-0.2); Absolute Eosinophil Count 0.02 10^3/uL (0.0-0.7); Absolute Lymphocyte Count 0.98 10^3/uL (1.2-3.4); Absolute Monocyte Count 0.47 10^3/uL (0.1-0.8); Basophils % 0.1 %; Eosinophils % 0.1 %; HCT 42.4 % (36.0-46.0); HGB 13.6 g/dL (11.2-15.7); Immature Grans % 1.4 %; Lymphocytes % 6.2 %; MCH 25.5 pg (27.0-33.0); MCHC 32.1 % (32.0-36.0); MCV 79 fL (80-95); MPV 9.1 fL (8.0-11.0); Neutrophils % 89.2 %; Platelet Count 443 10^3/uL (130-400); RBC 5.34 10^6/uL (3.93-5.22); RDW 16.1 % (11.7-14.6); RDW-SD 46.1 fL; WBC 15.81 10^3/uL (4.4-10.8)
[2024-10-26 12:09] LABS: Lactate 4.5 mmol/L (<or=2.0)
[2024-10-26 12:11] LABS: ESR 48 mm/hr (0-20)
[2024-10-26 12:26] LABS: Diff Comment Agrees w/ Instrument; RBC Morphology Normal
[2024-10-26] MEDS: Normal Saline 1,000 ML 1000 ML IV ×2 (12:26→13:59)
[2024-10-26] MEDS: LORazepam 2 MG/ML VIAL 1 MG IVP (12:26)
[2024-10-26 12:27] LABS: ALT 13 U/L (14-59); AST 20 U/L (15-37); Albumin 2.2 g/dL (3.4-5.0); Alkaline Phosphatase 120 U/L (46-116); Anion Gap 8.3 mmol/L (3-11); BUN 35 mg/dL (7-18); Bilirubin, Total 0.6 mg/dL (0.2-1.0); CO2 28.7 mmol/L (21.0-32.0); CREATININE 1.5 mg/dL (0.55-1.02); Calcium 8.9 mg/dL (8.5-10.1); Chloride 92 mmol/L (98-107); Estimated GFR 45.74 (mL/min/1.73m2); Glucose 308 mg/dL (74-106); Magnesium 2.5 mg/dL (1.8-2.4); Potassium 3.3 mmol/L (3.5-5.1); Sodium 129 mmol/L (136-145); Total Protein 8.3 g/dL (6.4-8.2)
[2024-10-26] MEDS: MORPHine 4 MG/ML SYR IVP ×2 (12:27→14:37)
--- NOTE | 2024-10-26 12:33 | W.ORTHOCONSU ---
Date of service: 10/26/24 Time of Service: 12:33 History of Present Illness History of Present Illness Chief Complaint: Right leg swelling/pain/drainage Narrative: Aurelia is a 39-year-old female presents today for right leg pain, swelling, and drainage. She reports having some increasing swelling and pain about the right leg over the past few weeks but over the past few days noted blistering and drainage of the anterior thigh as well as drainage from the anterior knee. She actively uses IV drugs, most recently cocaine. She has had an issue with an abscess about the right anterior thigh last year which was treated success with antibiotics. She has had increasing difficulty with weightbearing. She reports fever and chills. Consults Consult date: 10/26/24 Requesting physician: Cass Romo Consult Reason Severe right leg infection, sepsis Assessment and Plan Assessment and plan (1) Cellulitis and abscess of right leg: Status: Acute Assessment and plan: Evelyn is a 39-year-old female who has a severe infection about her right leg. This is quite severe. She has an elevated lactate, acute hyperglycemia, acute kidney injury with an elevated creatinine of 1.5, thrombocytosis, elevated beyond measure CRP and an elevated ESR She has a wound anterior to the knee as well as superior to blistering of the anterior thigh. CT scan shows diffuse inflammatory and infectious changes although no true abscess but there is thickening of the fascia. Per her report the symptoms have progressed over the last few days. The CT scan does not show any fluid within the joint although there has to be consideration of septic arthritis. Thankfully, I do not think involves the joint itself. However, I am quite concerned about the risk of necrotizing fasciitis, although without gas. Her vital signs are stable but given her lab values she is likely on a precipice of stability. Debridement of some of the infectious material is likely necessary although the skin in this region is quite concerning. I worry about the ability of any soft tissue closure and the concern for necrotizing fasciitis. Given the complexity of this case I would recommend tertiary center transfer. If she decompensates while here or before there is any acceptance, immediate surgical debridement would likely be the best next step. She should remain NPO. Review of Systems All systems reviewed & are unremarkable except as noted in HPI and below PFSH All Active Problems Sepsis (Acute) Acute hyperglycemia (Acute) NICOLE (acute kidney injury) (Acute) Necrotizing fasciitis of pelvic region and thigh (Acute) Cellulitis and abscess of right leg (Acute) Medical History Narcotic abuse Bipolar affective disorder Anxiety Social History Smoking/Tobacco Use Status: Current every day Tobacco Type: cigarettes and pipe Smoking risk assessment performed?: Yes Alcohol Intake: current Alcohol Intake frequency: holidays/special occasions only Drug use: Binges Substance use type: crack/cocaine, heroin and IV drugs Details: used crack about this 5am today Housing: homeless Do you feel safe at home: Yes Do you feel safe in your relationship?: Yes Exam Narrative Exam Narrative: Sitting up in the hospital stretcher. Uncomfortable. Alert and oriented x 3. Head is normocephalic and atraumatic. Eyes are anicteric. Evaluation of the right lower extremity shows multiple wounds about the right leg of various stages of healing all the way up to the groin. None of these seem to be acutely infected. Ever, the central portion of the leg from the mid thigh to about the mid leg has notable warmth and erythema. There is purulent blistering seen about the anterior aspect of the thigh proximal to the patella with sloughing of the skin, epidermal lysis. There is exquisite pain to palpation about anywhere in the region of erythema. No palpable crepitus. There is fluctuance with palpation of the skin and soft tissues and draining purulent blood from a wound over the anterior knee. She is able to straight leg raise without significant increase in pain. She is able tolerate some range of motion of the knee, approximately 20 to 70 degrees. She does not have any increase in pain with this arc of motion. Exquisite pain to palpation throughout anywhere in this zone. Less pain distally although she does all have some pain proximal to the area of erythema extending up to the groin. Unable to palpate distal pulses. She does endorse sensation distally in the foot although with some dysesthesias but not specific to any dermatomal distribution. Results Last Vital Signs Temp 36.3 C L 10/26/24 11:04 Pulse 107 H 10/26/24 11:04 Resp 15 10/26/24 11:25 BP 106/77 10/26/24 11:04 Pulse Ox 97 10/26/24 11:04 Labs 10/26/24 11:58 10/26/24 11:58 Labs: Laboratory Results - last 24 hr 10/26/24 11:58 WBC 15.81 H RBC 5.34 H Hgb 13.6 Hct 42.4 MCV 79 L MCH 25.5 L MCHC 32.1 RDW 16.1 H Plt Count 443 H MPV 9.1 Immature Gran % 1.4 Neutrophils % 89.2 Lymphocytes % 6.2 Monocytes % 3.0 Eosinophils % 0.1 Basophils % 0.1 Nucleated RBC % 0.0 Absolute Neutrophils 14.10 H Absolute Lymphocytes 0.98 L Absolute Monocytes 0.47 Absolute Eosinophils 0.02 Absolute Basophils 0.02 RBC Morphology Normal ESR 48 H VBG Lactate 4.5 H* Imaging Imaging Studies: CT scan of the right lower extremity shows extensive soft tissue inflammation and infection about the right leg from the mid thigh to an area just distal to the tibial tubercle. There appears to be a skin defect anteriorly, corresponding to that on examination. There is no gas seen within the soft tissues. However, I am concerned about the thickening of the fascia seen, mostly in the anterior compartment but also circumferentially at the level of the knee. There is no notable knee joint effusion. However, there is soft tissue density adjacent to the patellar ligament and the capsule lateral to the patellar ligament which could be a source of infection into the knee, however, no change in the knee joint itself is appreciated.
[2024-10-26 12:38] LABS: C-Reactive Protein > 25.00 mg/dL (<or=0.5)
[2024-10-26] MEDS: Omnipaque 350 MG/ML 100 ML BTL IJ (12:41)
[2024-10-26 12:42] LABS: Creatine Kinase 42 U/L (26-192)
[2024-10-26] MEDS: Normal Saline - Diluent 50 ML VIAL IJ (13:01)
--- NOTE | 2024-10-26 13:10 | SCONE_ITS ---
Date of service: 10/26/24 Time of Service: 13:11 Assessment and Plan Assessment and plan (1) Necrotizing fasciitis of pelvic region and thigh: Status: Acute Assessment and plan: 39-year-old woman with severe right lower extremity edema and cellulitis in the setting of IV drug use. She seems hemodynamically stable but overall is critically ill considering the laboratory derangements in the setting of the severe soft tissue infection of her entire right lower extremity. It is reassuring that she has had an infection like this before a year ago and that this current infection has been going on for 4 days . . . however the acute worsening of it is not reassuring. I looked at her CT scan There is no obvious subcutaneous emphysema anywhere, but that would only rule out gas?forming organisms being present. To me there is extensive fluid inflammation around her fascial planes extending above and below the knee. Radiographically, that is concerning for a possible necrotizing infection such as strep. Her leg does not have the clinical appearance of a necrotizing infection(no woodiness or crepitus), but sometimes it is subtle and difficult to find clinically. There is some degree of source control in that she is draining pus spontaneously already. I recommend that she gets transferred to a higher level of care. We do not have the resources necessary to manage this at our facility. I passed on these recommendations to the emergency department physicians taking care of her. History of Present Illness Narrative: Asked to consult on a patient with severe soft?tissue infection in the leg. Patient is an IV drug user. A year ago, almost to date, she presented to our ER with a similar presentation of cellulitis and had pus coming out of the leg and spontaneously draining. This time around, reportedly the leg infection has been going on for 4 days. Today things changed however and it started spontaneously draining fluid and pus again. [facility] All Active Problems (Updated 10/26/24 @ 13:27 by Michael Yip MD) Necrotizing fasciitis of pelvic region and thigh (Acute) Cellulitis and abscess of right leg (Acute) Medical History Narcotic abuse Bipolar affective disorder Anxiety Social History Smoking/Tobacco Use Status: Current every day Tobacco Type: cigarettes and pipe Smoking risk assessment performed?: Yes Alcohol Intake: current Alcohol Intake frequency: holidays/special occasions only Drug use: Binges Substance use type: crack/cocaine, heroin and IV drugs Details: used crack about this 5am today Housing: homeless Do you feel safe at home: Yes Do you feel safe in your relationship?: Yes Exam Narrative Exam Narrative: Gen: Interactive, not overtly toxic in appearance, able to provide reasonable history Neuro: Alert and oriented x 3 Psych: Reasonable mood and affect, cooperative, seemingly good insight and understanding Right lower extremity: Diffuse cellulitis from the mid?thigh all the way down to the ankle. There is no crepitus. It is tender to touch everywhere. Nothing appears woody. She does have some sloughing of her skin. Just beneath the knee, she is spontaneously draining pus. It is not clear fluid and is frankly purulent. There is no obvious odor. Results Last Vital Signs Temp 97.4 F L 10/26/24 11:04 Pulse 107 H 10/26/24 11:04 Resp 15 10/26/24 11:25 BP 106/77 10/26/24 11:04 Pulse Ox 97 10/26/24 11:04 Labs 10/26/24 11:58 10/26/24 11:58 Labs: Laboratory Results - last 24 hr 10/26/24 11:58 WBC 15.81 H RBC 5.34 H Hgb 13.6 Hct 42.4 MCV 79 L MCH 25.5 L MCHC 32.1 RDW 16.1 H Plt Count 443 H MPV 9.1 Immature Gran % 1.4 Neutrophils % 89.2 Lymphocytes % 6.2 Monocytes % 3.0 Eosinophils % 0.1 Basophils % 0.1 Nucleated RBC % 0.0 Absolute Neutrophils 14.10 H Absolute Lymphocytes 0.98 L Absolute Monocytes 0.47 Absolute Eosinophils 0.02 Absolute Basophils 0.02 RBC Morphology Normal ESR 48 H VBG Lactate 4.5 H* Sodium 129 L Potassium 3.3 L Chloride 92 L Carbon Dioxide 28.7 Anion Gap 8.3 BUN 35 H Creatinine 1.5 H Est GFR (CKD-EPI 2020) 45.74 Glucose 308 H Calcium 8.9 Magnesium 2.5 H Total Bilirubin 0.6 AST 20 ALT 13 L Alkaline Phosphatase 120 H Creatine Kinase 42 C-Reactive Protein > 25.00 H Total Protein 8.3 H Albumin 2.2 L
[2024-10-26] MEDS: CLINDAMYCIN 900 MG/50 ML BAG 50 MG IVPB (13:59)
[2024-10-26] MEDS: VANCOMYCIN/WATER (PEG) 2 GM/400 ML BAG IVPB (13:59)
[2024-10-26] MEDS: metroNIDAZOLE 500 MG/100 ML BAG 100 MG IVPB (14:24)
[2024-10-26] MEDS: CIPROFLOXACIN 400 MG/200 ML BAG 200 MG IVPB (14:24)
[2024-10-26] MEDS: Acetaminophen 500 MG TAB 1000 MG PO (14:46)
--- NOTE | 2024-10-26 21:22 | NUR.NOTE ---
Nursing Note: Accessed chart to get contact list.
--- NOTE | 2024-10-29 08:39 | NUR.NOTE ---
Accessed Pt chart to see if Pt was given a prescription, for the Specimen Report form. [place] [facility] [place] a copy of the Specimen Report Form [place] [facility] [place] so they could forward to Pts Provider there.
== END 2024-10-26 15:10 | disposition short-term general hospital (02) ==
LOC: ER 13:05
PROVIDERS: Emergency Provider Physician Assistant
DX: M72.6 Necrotizing fasciitis (principal); L03.115 Cellulitis of right lower limb; L02.415 Cutaneous abscess of right lower limb; N17.9 Acute kidney failure, unspecified; A41.9 Sepsis, unspecified organism; R73.9 Hyperglycemia, unspecified; F14.90 Cocaine use, unspecified, uncomplicated
CPT/HCPCS: 36415; 80053; 81025; 82550; 85652; 87040; 87077; 96361; 96365; 96367; 96375; 99285; 73701; 83605; 83735; 85025; 86140; 87070; 87205; J0737; J0744; J1836; J2060; J2270; J3372; J3490